=== PATIENT | female | born 1980 | race Caucasian/White ===

== ENCOUNTER 2022-07-29 19:53 | Emergency (ER) | payer OTHER, SELFPAY ==
[2022-07-29 20:06] VITALS: BP 111/78; PULSE 94; RESP 18; TEMP 36.9; O2SAT 99; BMI 34.8
[2022-07-29 20:26] LABS: Appearance Urine Clear (Clear); Bilirubin Urine Negative (Negative); Blood Urine Negative (Negative); Color Urine Yellow (Yellow); Glucose Urine Negative (Negative); Ketones Urine Negative (Negative); Leukocyte Esterase Urine 1+ (Negative); Nitrite Urine Negative (Negative); Protein Urine Negative (Negative); Urobilinogen Urine >=8.0 (0.2-1.0)
[2022-07-29 20:36] LABS: Bacteria Urine Few; RBC Urine 0-2 (0-2); Squamous Epithelial Cell Urine Few (None-Few)
[2022-07-29 20:42] LABS: Lactate* 0.5 mmol/L (0.5-1.9)
[2022-07-29] MEDS: KETOROLAC 30 MG/ML inj IVP (20:43)
[2022-07-29 20:44] LABS: Basophils Absolute Auto 0.04 K/uL (0.00-0.30); Basophils Percent Auto 0.6 % (0.0-3.0); Eosinophils Absolute Auto 0.05 K/uL (0.00-0.50); Eosinophils Percent Auto 0.7 % (0.0-7.0); Hematocrit 38.4 % (33.0-51.0); Hemoglobin* 12.7 gm/dL (12.0-16.0); Immature Granulocytes Abs Auto 0.01 K/uL (0.00-0.30); Lymphocytes Absolute Auto 1.89 K/uL (0.90-2.90); Mean Corpuscular HGB Conc 33 gm/dL (32-36); Mean Corpuscular Hemoglobin 29 pg (26-34); Mean Corpuscular Volume 89 fL (80-100); Monocytes Percent Auto 8.4 % (0.0-11.0); Neutrophils Absolute Auto 4.41 K/uL (1.7-7.0); Neutrophils Percent Auto 63.2 % (42.0-72.0); Platelet Count* 337 K/uL (140-440); RDW Coefficient of Variation % 12.3 % (11.5-15.5); Red Blood Count 4.34 m/uL (4.00-5.20); White Blood Count* 6.99 K/uL (4.50-11.00)
[2022-07-29 20:47] LABS: Slide Review Reflex No
[2022-07-29] MEDS: 0.9 % SODIUM CHLORIDE 1000 ml 1,000 ML IV ×2 (20:47→20:51)
--- OUTSIDE RECORDS SUMMARY | 2022-07-29 20:57 | XMS_ITS | Encounter Summary ---
:1980 Author Organization [facility] Address [address] [place] [address] Care Team Providers Name Role Phone Unavailable Primary Care Provider Unavailable Encounter Details Date Type Department Care Team Description 09/16/2021 Clinical Communication Department of Romeo Otoole, Obstetrics and M.D. Gynecology in [address] [place] [id number] [place], [place] [phone] (Work) [phone] Social History Tobacco Use Types Packs/Day Years Used Date Smoking Tobacco: Never Assessed Sex Assigned at Date Recorded Not on file documented as of this encounter Miscellaneous Notes Telephone Encounter - Genevieve Calvillo R.N. - 09/16/2021 4:01 PM CST PLAN The following information was provided: Dr Otoole's recommendations Information/Education: patient/caller able to teach back The following references were used: provider Dr Otoole LAWYER Telephone Encounter - Genevieve Calvillo R.N. - 09/16/2021 3:47 PM CST ASSESSMENT Has ablation with hysteroscopy/D&C scheduled on 09/24/21. Her son was sent home from school todaywith COVID symptoms-he has been tested and awaiting results. Lois has been vaccinated. She and her employer are requesting your recommendation regarding quarantine at this time. If you recommend we will provide work note PLAN Discussed general precautions and to call for testing if she becomes symptomatic.Note forwarded to provider for further recommendations Disposition/Recommendation: notified provider and awaiting recommendations. Information/Education: patient/caller able to teach back. Caller agreeable to plan of care: yes. The following references were used: nursing clinical judgement. LAWYER Telephone Encounter - Ester Smalls - 09/16/2021 3:04 PM CST Patient is scheduled to have surgery next week with Dr. Otoole. Her son tested positive for Covid. She is wondering if there are precautions that she needs to take. Please call her back at [phone]. LAWYER documented in this encounter Plan of Treatment Not on filedocumented as of this encounter Visit Diagnoses Not on filedocumented in this encounter
--- OUTSIDE RECORDS SUMMARY | 2022-07-29 20:57 | XMS_ITS | Encounter Summary ---
:1980 Author Organization [facility] Address [address] [place] [address] Care Team Providers Name Role Phone Unavailable Primary Care Provider Unavailable Encounter Details Date Type Department Care Team Description 08/31/2021 Clinical Communication Department of Romeo Otoole, Obstetrics and M.D. Gynecology in [address] [place] [id number] [place], [place] [phone] (Work) [phone] Social History Tobacco Use Types Packs/Day Years Used Date Smoking Tobacco: Never Assessed Sex Assigned at Date Recorded Not on file documented as of this encounter Miscellaneous Notes Telephone Encounter - Carrie Lee - 08/31/2021 3:00 PM CST PA for hysteroscopy, dilation and curettage, endometrial ablation, IUD placement with Xiang at [facility] on 09/24/21 has been sent. Patient having COVID test done at [facility]. MOBILE Telephone Encounter - Joanna Paulino L.P.N. - 08/31/2021 2:01 PM RN MOBILE [facility] Surgery Clinic Checklist Patient Contact Number: [phone] Surgeon: Xiang Surgical Service: (_) Orthopedics (_) General surgery (_) Ophthalmology (_) Podiatry (_) ENT (_) Urology (X) OB / Gynecology (_) Other Date of Surgery: 09/24/21 Place of Surgery: [facility] Procedure (as written on Consent): hysteroscopy, dilation and curettage, endometrial ablation, IUD placement Right, Left, Bilateral, N/A: Diagnosis (reason for surgery): abnormal uterine bleeding ICD-10: n93.9 CPT:98824; [id number] Case Type: (_) Outpatient (_) AM Admit (_) Inpatient (_) One day surgery Patient MOBILE documented in this encounter Plan of Treatment Not on filedocumented as of this encounter Visit Diagnoses Not on filedocumented in this encounter
--- OUTSIDE RECORDS SUMMARY | 2022-07-29 20:57 | XMS_ITS | Encounter Summary ---
:1980 Author Organization [facility] Address [address] [place] [address] Care Team Providers Name Role Phone Unavailable Primary Care Provider Unavailable Reason for Visit Reason Comments Medical Information Encounter Details Date Type Department Care Team Description 09/28/2021 Clinical Communication [facility] Arelis Damon Gynecology in [address] [place] [phone] [place] [address] [place], [place] (Work) [phone] Social History Tobacco Use Types Packs/Day Years Used Date Smoking Tobacco: Never Assessed Sex Assigned at Date Recorded Not on file documented as of this encounter Miscellaneous Notes Telephone Encounter - Shanna Kelley L.P.N. - 09/28/2021 4:24 PM ACTIVITIES SPECIALIST Patient informed and will special agent group insurance at [employer] desk in [place]. VITIES SPECIALIST Telephone Encounter - Shanna Kelley L.P.N. - 09/28/2021 2:03 PM ACTIVITIES SPECIALIST Patient still is bleeding from ablation endometrium novasure with hysteroscopy and D&C surgery 09/24/2021. 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 She is hoping by Tuesday that the cramping and bleeding will be done. She is asking for a note stating to be off 09/28 and 09/29 and return to work on . She will special agent group insurance note whe n ready in [place]. Note pended, sign if approved. VITIES SPECIALIST Telephone Encounter - Suresh Escobar - 09/28/2021 1:53 PM CST Reason for Communication: Patient called and would like to talk to a rheostat assembler nurse about getting a work note with restrictions, after she had her surgery with jamilah, please advise. Current Can Nursing/Provider leave a detailed message: yes Did the patient refuse triage through Nurse line? (for symptom based concerns): Action Needed: Name of Medication (if relevant): VITIES SPECIALIST documented in this encounter Plan of Treatment Not on filedocumented as of this encounter Visit Diagnoses Not on filedocumented in this encounter
--- OUTSIDE RECORDS SUMMARY | 2022-07-29 20:57 | XMS_ITS | Encounter Summary ---
:1980 Author Organization [facility] Address [address] [place] [address] Care Team Providers Name Role Phone Unavailable Primary Care Provider Unavailable Encounter Details Date Type Department Care Team Description 10/01/2021 Clinical Communication Department of Romeo Otoole, Obstetrics and MD[place]. Gynecology in [address] [place] [address] [place], [place] [phone] (Work) [phone] Social History Tobacco Use Types Packs/Day Years Used Date Smoking Tobacco: Never Assessed Sex Assigned at Date Recorded Not on file documented as of this encounter Miscellaneous Notes Telephone Encounter - Renu Martins, L.P.N. - 10/01/2021 4:01 PM PHOTOGRAPHIC TECHNICIAN Spoke with patient and she said that she is change a always maxi pad 3 times today. She said it is bright red blood. It is not soaking the pad. She wants to know if this is normal or if she is doing tomuch. 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 Told her I would let you know. She is not having any pain. She also said she has an appointment tomorrow with you. OGRAPHIC TECHNICIAN Telephone Encounter - Ester Smalls - 10/01/2021 3:54 PM CST Patient states she is back working and now she is bleeding again. She is wondering if she is doing too much. Please call her back to discuss. OGRAPHIC TECHNICIAN documented in this encounter Plan of Treatment Not on filedocumented as of this encounter Visit Diagnoses Not on filedocumented in this encounter
--- OUTSIDE RECORDS SUMMARY | 2022-07-29 20:57 | XMS_ITS | Clinical Summary ---
:1980 Author Organization [facility] Address [address] [place] [address] Care Team Providers Name Role Phone Unavailable Primary Care Provider Unavailable Source Comments Patient records contain information from all sites at [facility]. For routine questions regarding patient records, call [phone] during business hours, M-F 8:00 AM - 5:00 PM Central Time. Record requests for emergency care only can be directed to [phone] at any time.[facility] Allergies No known active allergies Medications Medication Sig Dispensed Refills Start Date End Date Status estradioL (ESTRACE) 1 TAKE ONE TABLET BY 0 1 Active mg tablet MOUTH EVERY DAY FOR 7 DAYS sennosides-docusate Take 1 tablet by 0 12/20/2019 Active sodium (SENOKOT-S) mouth daily. 8.6-50 mg per tablet omeprazole (PriLOSEC) omeprazole 40 mg capsule,delayed release 0 04/24/[address] capsule TAKE ONE CAPSULE BY MOUTH ONCE DAILY BEFORE A MEAL levothyroxine Take 75 mcg by 0 07/25/2021 Active (SYNTHROID, mouth. LEVOTHROID) 75 mcg tablet levonorgestreL 1 Device by 0 06/16/2020 Ac tive (MIRENA) 20 mcg/24 intrauterine route. hours (7 yrs) 52 mg IUD levonorgestrel-ethiny Take 1 tablet by 91 tablet 3 08/31/2021 Active l estradiol mouth daily. (SEASONALE) 0.15-mg-30 mcg per tabletIndications: Abnormal Uterine And Vaginal Bleeding Unspecified Immunizations Name Administration Dates Next Due Influenza, Unspecified 09/23/2009, 08/17/2007, 09/06/2006, 1 11/18/2004, 08/17/2004 Social History Tobacco Use Types Packs/Day Years Used Date Smoking Tobacco: Never Smokeless Tobacco: Never Sex Assigned at Date Recorded Not on file Last Filed Vital Signs Vital Sign Reading Time Taken Comments Blood Pressure 114/78 10/02/2021 2:52 PM METAL BONDER Pulse 80 10/02/2021 2:52 PM METAL BONDER Temperature - - Respiratory Rate - - Oxygen Saturation - - Inhaled Oxygen Concentration - - Weight 103 kg (228 lb 1.1 oz) 10/02/2021 2:52 PM METAL BONDER Height - - Body Mass Index - - Plan of Treatment Health Maintenance Due Date Last Done Comments HIV Screening 1980 Hepatitis C Screening 1980 Mammogram 1980 Depression Screening 10/17/2021 (Annual PHQ-2) COVID-19 Vaccine (4 - 10/29/2021 09/03/2021, 11/27/2020, Booster for Pfizer series) 11/06/2020 Influenza Vaccine (#1) 2022 07/16/2020, 08/27/2017, 07/29/2016, Additional history exists DTaP,Tdap,and Td Vaccines 08/25/2022 08/25/2012 (2 - Td or Tdap) Thyroid Stimulating Hormone 11/12/2022 11/12/2021, 07/23/20 21, (TSH) test for thyroid 06/01/2021, Additional function history exists Cervical Cancer Screening 08/31/2026 08/31/2021, 08/31/2021 Lipid (Cholesterol) 01/12/2027 01/12/2022, 03/23/2019 Screening Hepatitis B Vaccines Completed 04/17/1997, 10/24/1996, 09/26/1996 Pneumococcal vaccine (0-64 Aged Out No lo nger eligible years) based on patient 's age to complete this topic Insurance Payer Benefit Plan / Subscriber ID Effective Phone Address T ype Group Dates [employer] [place] [id number] 2020-Pre [phone] PPO SHIELD 1 sent [id number] [address] [id number] [facility] [id number] 2020-Pre [phone] [facility] sent [phone] [phone]
--- OUTSIDE RECORDS SUMMARY | 2022-07-29 20:57 | XMS_ITS | Encounter Summary ---
:1980 Author Organization [facility] Address [address] [place] [address] Care Team Providers Name Role Phone Unavailable Primary Care Provider Unavailable Reason for Referral Outpatient (Routine) - Authorized Specialty Diagnoses / Procedures Referred By Contact Refer red To Contact Diagnoses Wellness Screening Romeo Otoole M.D. [facility] Procedures BI Breast Screening Bilateral with Tomosynthesis [address] [place] [address] Referral ID Status Reason Start Date Expiration Date Visits V isits Requested Authorized [id number] Authorized 08/31/2021 08/31/2022 1 1 ING SANDER OPERATOR Reason for Visit Reason Comments DUB Appointment Request (Routine) - Closed Specialty Diagnoses / Procedures Referred By Contact Refer red To Contact Obstetrics and Gynecology Referral ID Status Reason Start Date Expiration Date Visits Requ ested Visits Authorized [id number] Closed 08/31/2021 08/31/2022 1 1 Encounter Details Date Type Department Care Team Description 08/31/2021 Comprehensive Visit Department of Romeo Otoole Uterine And Vaginal Bleeding Unspecified (Primary Dx); Obstetrics and Arelis Damon Wellness Screening Gynecology in [address] [facility] [id number] [address] [facility] [phone] [place], [place] (Work) [phone] Social History Tobacco Use Types Packs/Day Years Used Date Smoking Tobacco: Never Assessed Sex Assigned at Date Recorded Not on file documented as of this encounter Last Filed Vital Signs Vital Sign Reading Time Taken Comments Blood Pressure 108/64 08/31/2021 1:00 PM TURNING SANDER OPERATOR Pulse 100 08/31/2021 1:00 PM TURNING SANDER OPERATOR Temperature - - Respiratory Rate - - Oxygen Saturation - - Inhaled Oxygen Concentration - - Weight 101 kg (221 lb 10.8 oz) 08/31/2021 1:00 PM TURNING SANDER OPERATOR Height - - Body Mass Index - - documented in this encounter Progress Notes Romeo Otoole M.D. - 08/31/2021 1:15 PM CST Consult note Consult requested by Brooke Valenzuela SUBJECTIVE CHIEF COMPLAINT/REASON FOR VISIT Abnormal uterine bleeding HISTORY OF PRESENT ILLNESS Lois Rose is a 41 y.o. P3 who presents in consultation for abnormal uterine bleeding. Mirena placed a year ago with secondary amenorrhea, though now with new onset daily spotting x2 months. Prior IUDs all with good responses. Also reports new onset lower abdominal pain, left > right,constant, though severe with intercourse, one care home partner x1 year, no prior dyspareunia. Current dyspareunia deep and to the left. BMs at baseline, abnormal with mostly constipation following prior gastric sleeve. She does report that she often goes days between bowel movements, in effectively managed with regular use of stool softeners as well as enemas. She has never been evaluated by GI for this. Voiding is normal. No other vaginal symptoms. OBSTETRICAL HISTORY: P3003, s/p x3 GYNECOLOGIC HISTORY: No LMP recorded. (Menstrual status: Having periods with Intrauterine Device/Implant). As above Last pap NIL (08/03) due for repeat Pap LAST MAMMOGRAM: Never, due now STI HISTORY: Chlamydia in 2018 Using IUD for control. 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 FAMILY HISTORY No family history on file. SOCIAL HISTORY Social History Socioeconomic History ??? Marital status: Spouse name: Not on file ??? Number of children: Not on file ??? Years of education: Not on file ??? Highest education level: Not on file Occupational History ??? Not on file Tobacco Use ??? Smoking status: Not on file ??? Smokeless tobacco: Not on file Substance and Sexual Activity ??? Alcohol use: Not on file ??? Drug use: Not on file ??? Sexual activity: Not on file Other Topics Concern ??? Not on file Social History Narrative ??? Not on file Social Determinants of Health Financial Resource Strain: Not on file Food Insecurity: Not on file Transportation Needs: Not on file Physical Activity: Not on file Stress: Not on file Social Connections: Not on file Intimate Partner Violence: Not on file Housing Stability: Not on file ALLERGIES/CONTRAINDICATIONS Patient has no known allergies. CURRENT MEDICATIONS Current Outpatient Medications Medication Sig Dispense Refill ??? levonorgestreL (MIRENA) 20 mcg/24 hours (7 yrs) 52 mg IUD 1 Device by intrauterine route. ??? levothyroxine (SYNTHROID, LEVOTHROID) 75 mcg tablet Take 75 mcg by mouth. ??? omeprazole (PriLOSEC) [address] capsule omeprazole 40 mg capsule,delayed release TAKE ONE CAPSULE BY MOUTH ONCE DAILY BEFORE A MEAL ??? sennosides-docusate sodium (SENOKOT-S) 8.6-50 mg per tablet Take 1 tablet by mouth daily. ??? estradioL (ESTRACE) 1 mg tablet TAKE ONE TABLET BY MOUTH EVERY DAY FOR 7 DAYS No current facility-administered medications for this visit. REVIEW OF SYSTEMS A 10 point Review of Systems was negative, other than as noted in the History of Present Illness. OBJECTIVE PHYSICAL EXAMINATION VITAL SIGNS Vitals: 08/31/21 1300 BP: 108/64 Pulse: 100 Weight: 101 kg There is no height or weight on file to calculate BMI. General: Alert, oriented, appropriately interactive, in no acute distress. Cardiovascular: Regular rate and rhythm. Respiratory: Clear to auscultation bilaterally. Good effort, without distress. Abdomen: Soft, obese, nontender, nondistended. No masses appreciated. Perineum: No lesions. Normal appearing external genitalia, Bartholin glands, urethra, and [place]'s glands. Vagina: Blood in vault. No masses or lesions. No discharge, normally rugated. Cervix: No masses or lesions. Scant active bleeding from the os. No discharge. Anus: Appears normal. Bimanual Exam: Nontender pelvic floor muscles. Urethra: Nontender. Bladder: Nontender Uterus: Midline, anteverted, small, mobile. No masses, nontender. Adnexa: Focal significant tenderness in the left deep pelvis at approximately the ovarian fossa without mass appreciated. No masses appreciated. No cervical motion tenderness. Musculoskeletal: Normal gait. Symmetric movements of upper extremities and lower extremities. Lower Extremities: Nontender, no edema. LABS: TSH 3.15, free T4 0.85, thyroperoxidase antibody 459 Pelvic ultrasound (08/28/21) FINDINGS: Uterus 8.9 x 5.2 x 3.3 cm. Endometrial stripe 4 mm. IUD is seen within the endometrium. Right ovary measures 3.4 x 3.0 x 1.9 cm and shows arterial flow. Left ovary measures 2.4 x 2.2 x 1.8 cm and showsarterial flow. Directly adjacent to the left ovary is an anechoic simple appearing cystic area measuring 1.5 x 1.0 x 1.2 centimeters possibly representing simple exophytic cyst. Echogenic and shadowingarea within the cervix measuring it 0.4 x 0.4 x 0.3 centimeters may correspond to the calcificationsseen on comparison CT. Mildly difficult exam due to bowel gas. IMPRESSION: Endometrium measures 4 millimeters. IUD is seen within the endometrium. Simple appearing exophytic cyst versus less likely paraovarian cyst directly adjacent to the left ovary, measuring up to 1.5 centimeters. 4 millimeter echogenic and shadowing area within the cervix, may correspond to the hyperdense probably calcification seen on comparison CT. The following portions of the patient's history were reviewed and updated as appropriate: allergies,current medications, family history, medical history, social history, surgical history and problem list. ASSESSMENT / PLAN Lois Rose is a 41 y.o. P3 who presents for assessment of abnormal uterine bleeding as well as focal deep left lower quadrant pain. Based on her history, exam findings, and ultrasound findings as detailed above, I suspected that her deep left lower quadrant pain is GI in nature rather than nurse gynecology,patient has chronic severe constipation, is at high risk for diverticulosis or diverticulitis. I am recommending that she discuss with her primary care provider referral to a GI specialist in [place]. Her abnormal uterine bleeding as her to explain. She has been previously well controlled with MirenaIUD for many years with a sudden onset of abnormal prolonged bleeding. Bleeding appears to be comingfrom the uterus, no vaginal nor cervical lacerations were noted. Endometrial stripe is thin at 4 mm on ultrasound. Patient is requesting an endometrial ablation. Endometrial biopsy is not strictly indicated given 4 mm endometrial stripe. However, given her desire for an ablation, I am recommending a hysteroscopy, dilation and curettage, endometrial ablation, and removal and replacement of a Mirena IUD. This will allow further assessment of the endometrium and sampling prior to performing the ablation as well as very likely treat her abnormal bleeding. We did discuss the risks of recurrent bleeding following an endometrial ablation with increased risk when the ablation is a performed a younger age.She would like to proceed with the procedure, requested this be performed in the operating room rather than clinic. Surgical consent has been signed indicates has been requested. Abnormal Uterine And Vaginal Bleeding Unspecified - Patient is requesting an endometrial ablation. See discussion above. - SARS Coronavirus-2 RNA, V Asymptomatic; Future - levonorgestrel-ethinyl estradiol (SEASONALE) 0.15-mg-30 mcg per tablet; Take 1 tablet by mouth daily. Dispense: 91 tablet; Refill: 3 Wellness Screening - ThinPrep w/HPV Co-Test Screen - BI Breast Screening Bilateral with Tomosynthesis; Future Romeo Otoole M.D. 08/31/2021 1:24 PM TURNING SANDER OPERATOR ING SANDER OPERATOR documented in this encounter Plan of Treatment Scheduled Orders Name Type Priority Associated Order Schedule Diagnoses BI Breast Screening Imaging RAD - Routine (most Wellness Scree bijan Expected: Bilateral with inpatients and all 021 Tomosynthesis outpatients) (Approximate), Expires: 08/31/2024 documented as of this encounter Procedures Procedure Name Priority Date/Time Associated Diagnosis Comme nts THINPREP W/HPV Routine 08/31/2021 1:55 PM Wellness Screening R esults for this CO-TEST SCREEN TURNING SANDER OPERATOR procedure are in the results section. HPV WITH Routine 08/31/2021 1:55 PM Results f or this GENOTYPING, PCR, TURNING SANDER OPERATOR procedure a re in THINPREP the results section. documented in this encounter Results HPV with Genotyping, PCR, ThinPrep (08/31/2021 1:55 PM TURNING SANDER OPERATOR) P athologist Signature HPV with Negative Negative 09/01/2021 [facility] Genotyping, 8:33 PM TURNING SANDER OPERATOR ThinPrep, PCR Comment: Negative for high risk HPV by nucleic ac id amplification. ??The following high risk HPV types were not detected: 16, 18, 31, 33, 35, 39, 45, 51, 52, 56, 58, 59, 66, and 68 Specimen Anatomical Collection Method Collection Time Receive d Time (Source) Location / / Volume Laterality Varies 08/31/2021 1:55 PM 7:35 TURNING SANDER OPERATOR AM TURNING SANDER OPERATOR Romeo Otoole M.D. LAB MICROBIOLOGY - GENERAL O RDERABLES Performing Organization Address City/State/ZIP Code Phon e Number [facility]- [address] [place] [id number] [place] [address] [address] ThinPrep w/HPV Co-Test Screen (08/31/2021 1:55 PM TURNING SANDER OPERATOR) Component Value Ref Test Analysis Performed Pathologis t Range Method Time At Signature 09/03/2021 [facility] 11:07 AM TURNING SANDER OPERATOR Report DENEEN Samano(ASCP) 09/03/2021 [facility] electronically 11:07 AM signed by TURNING SANDER OPERATOR I verify that I have examined all relevant slides/materials for the specimen(s) and rendered or confirmed the diagnosis. Gross Description Received specimen 09/03/2021 [facility] Y in a ThinPrep 11:07 AM vial. TURNING SANDER OPERATOR Pap Test Source Cervical/Endocervi 09/03/2021 [facility] yonatan 11:07 AM TURNING SANDER OPERATOR Clinical History screen 09/03/2021 [facility] 11:07 AM TURNING SANDER OPERATOR Menstrual lmp 09/03/2021 [facility] Status(LMP, PM, 11:07 AM ) TURNING SANDER OPERATOR Hormone IUD 09/03/2021 [facility] Therapy/Contracep 11:07 AM tives TURNING SANDER OPERATOR Interpretation Cervical/Endocervical ??(ThinPrep): 09/03/2021 [facility] 11:07 AM Satisfactory for Evaluation TURNING SANDER OPERATOR Partially obscuring inflammation Negative for Intraepithelial Lesion or Malignancy Shift in josef suggestive of bacterial vaginosis High Risk HPV: ??Negative Negative for High Risk HPV by nucleic acid amplification. The following High Risk HPV types were not detected: 16, 18, 31, 33, 35, 39, 45, 51, 52, 56, 58, 59, 66, and 68. Specimen Anatomical Collection Method Collection Time Receive d Time (Source) Location / / Volume Laterality Varies 08/31/2021 1:55 PM 11/16/202 1 7:35 (Cervix/Endocerv TURNING SANDER OPERATOR AM TURNING SANDER OPERATOR ix) Narrative This result has an attachment that is no t available. Romeo Otoole M.D. LAB PAP PATHDX ORDERABLES Performing Organization Address City/State/ZIP Code Phon e Number [facility]- [facility] CYTOLOGY [facility] [address] Cytology [facility] documented in this encounter Visit Diagnoses Diagnosis Abnormal Uterine And Vaginal Bleeding Un specified - Primary Wellness Screening documented in this encounter
--- OUTSIDE RECORDS SUMMARY | 2022-07-29 20:57 | XMS_ITS ---
:1980 Author Care Team Providers Name Role Phone DR. DOTTY NOLAN Referring Provider [phone] Allergies Code Code System Name Reaction Severity Status Onset NKDA ? Medications Name Status Start Date Stop Date ? ? Advair Diskus 250 mcg-50 mcg/dose powder for inhalation Complete d ? 07/08/2021 INHALE ONE PUFF BY MOUTH TWICE A DAY albuterol sulfate HFA 90 mcg/actuation aerosol inhaler Completed ? 07/08/2021 INHALE ONE TO TWO PUFFS BY MOUTH EVERY 4 HOURS NEEDED amoxicillin 875 mg-potassium clavulanate 125 mg tablet Completed ? 07/08/2021 TAKE ONE TABLET BY MOUTH TWICE A DAY WITH MEALS FOR 10 DAYS bupropion HCl XL 150 mg 24 hr tablet, extended release Completed ? 07/08/2021 cephalexin 500 mg capsule Completed ? 2020 TAKE ONE CAPSULE BY MOUTH THREE TIMES A DAY FOR 7 DAYS cyclobenzaprine 10 mg tablet Completed ? TAKE ONE TABLET BY MOUTH TWICE A DAY NEEDED FOR MUSCLE SPASM levothyroxine 50 mcg tablet Active ? Not available TAKE ONE TABLET BY MOUTH EVERY DAY BEFORE BREAKFAST omeprazole 40 mg capsule,delayed release Active ? Not available TAKE ONE CAPSULE BY MOUTH ONCE DAILY BEFORE A MEAL oxycodone-acetaminophen 5 mg-325 mg tablet Completed ? 07/08/2021 TAKE ONE TO TWO TABLETS BY MOUTH EVERY 6 HOURS NEEDED FOR PAIN MAX ACETAMINOPHEN DOSE 4000MG / 24HRS phentermine 37.5 mg tablet Completed ? 07/08 TAKE ONE-HALF TO ONE TABLET BY MOUTH ONCE DAILY BEFORE A MEAL prednisone 20 mg tablet Completed ? 07/08/20 21 TAKE TWO TABLETS BY MOUTH EVERY DAY FOR 3 DAYS, THEN TAKE ONE TABLET BY MOUTH EVERY DAY FOR 3 DAYS, THEN TAKE ONE-HALF TABLET BY MOUTH EVERY zolpidem 5 mg tablet Completed ? 07/08/2021 Problems Name Status Onset Date Source ? Lymphadenopathy Active 07/14/2021 ? Procedures None recorded. Results Lab Results None recorded. Past Encounters 07/08/2021 Lymphadenopathy Brooke Luke Craven, DDS: [address] [facility], [address], [place] [address], Ph. Social History None recorded. Vaccine List Vaccine Type COVID-19 (SARS-COV-2) vaccine, unspecifi ed 12/15/2020 Plan of Care Reminders Provider Appointments None recorded. ? ? Lab None recorded. ? ? Referral None recorded. ? ? Procedures None recorded. ? ? Surgeries None recorded. ? ? Imaging None recorded. ? ? Vitals Height Weight BMI Blood Pressure 5 ft 4 in 235 lbs 40.3 kg/m2 117/83 mm[Hg]
--- OUTSIDE RECORDS SUMMARY | 2022-07-29 20:57 | XMS_ITS | Encounter Summary ---
:1980 Author Organization [facility] Address [address] [place] [address] Care Team Providers Name Role Phone Unavailable Primary Care Provider Unavailable Reason for Visit Reason Comments Post-op Visit Appointment Request (Routine) - Closed Specialty Diagnoses / Procedures Referred By Contact Refer red To Contact Obstetrics and Gynecology Referral ID Status Reason Start Date Expiration Date Visits Requ ested Visits Authorized [id number] Closed 09/29/2021 09/29/2022 1 1 Encounter Details Date Type Department Care Team Description 10/02/2021 Office Visit Department of Romeo Otoole, Follow Up Examination Obstetrics and Arelis Postoperative Visit Gynecology in [address] (Primary Dx) [place], [place] [address] [facility] [address] [address] [address] [place], [place] [phone] [address] (Work) [phone] Social History Tobacco Use Types Packs/Day Years Used Date Smoking Tobacco: Never Smokeless Tobacco: Never Sex Assigned at Date Recorded Not on file documented as of this encounter Last Filed Vital Signs Vital Sign Reading Time Taken Comments Blood Pressure 114/78 10/02/2021 2:52 PM SPECIAL LOAN OFFICER Pulse 80 10/02/2021 2:52 PM SPECIAL LOAN OFFICER Temperature - - Respiratory Rate - - Oxygen Saturation - - Inhaled Oxygen Concentration - - Weight 103 kg (228 lb 1.1 oz) 10/02/2021 2:52 PM SPECIAL LOAN OFFICER Height - - Body Mass Index - - documented in this encounter Progress Notes Romeo Otoole M.D. - 10/02/2021 3:00 PM CST S: Lois Rose is a 41 y.o. P3 here for post-operative visit following a Hysteroscopy, D&C, Novasure endometrial ablation, Mirena removal and replacement on September 24. Hysteroscopic findings were unremarkable. Pathology showed benign tissue. Called yesterday, stated changing a maxi pad 3 times today. She said it is bright red blood. It is not soaking the pad. She wants to know if this is normal or if she is doing to much. 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 Today she reports discharge in bleeding is most prominent when she is climbing stairs, though the symptoms are manageable. She otherwise states that she is doing well without any other concerns. She just wants to make sure that this is normal. Current Outpatient Medications Medication Sig Dispense Refill ??? estradioL (ESTRACE) 1 mg tablet TAKE ONE TABLET BY MOUTH EVERY DAY FOR 7 DAYS ??? levonorgestreL (MIRENA) 20 mcg/24 hours (7 yrs) 52 mg IUD 1 Device by intrauterine route. ??? levonorgestrel-ethinyl estradiol (SEASONALE) 0.15-mg-30 mcg per tablet Take 1 tablet by mouth daily. 91 tablet 3 ??? levothyroxine (SYNTHROID, LEVOTHROID) 75 mcg tablet Take 75 mcg by mouth. ??? omeprazole (PriLOSEC) [address] capsule omeprazole 40 mg capsule,delayed release TAKE ONE CAPSULE BY MOUTH ONCE DAILY BEFORE A MEAL ??? sennosides-docusate sodium (SENOKOT-S) 8.6-50 mg per tablet Take 1 tablet by mouth daily. No current facility-administered medications for this visit. No Known Allergies No past medical history on file. No past surgical history on file. O: There were no vitals filed for this visit. Gen: Alert, oriented, appropriately interactive, NAD Remainder of exam deferred Pathology: A) ENDOMETRIUM, CURETTAGE: 1. Inactive endometrium with pseudodecidual changes 2. Portions of myometrium 3. Portions of endocervix 4. Negative for hyperplasia, atypia and malignancy A/P: Post op as detailed above Doing well. We reviewed that some bleeding and discharge is normal as the ablation heels, plan to discontinue to watch for now, she will return if symptoms do not resolve spontaneously. Electronically signed by: Romeo Otoole M.D. 10/01/21 6:34 PM SPECIAL LOAN OFFICER IAL LOAN OFFICER documented in this encounter Plan of Treatment Not on filedocumented as of this encounter Visit Diagnoses Diagnosis Follow Up Examination Postoperative Visi t - Primary documented in this encounter
[2022-07-29 21:01] LABS: Chloride* 107 mmol/L (96-114); Potassium* 3.9 mmol/L (3.6-5.1); Sodium* 137 mmol/L (135-149)
[2022-07-29 21:02] LABS: Albumin* 4.3 g/dL (3.3-5.0)
[2022-07-29 21:03] LABS: Creatinine* 0.7 mg/dL (0.5-1.5); Est. Creatinine Clearance* 91.33; Estimated Glomerular Filt Rate 111 ml/min
[2022-07-29 21:04] LABS: Blood Urea Nitrogen* 11 mg/dL (5-24); Carbon Dioxide* 22 mmol/L (20-32); Glucose* 101 mg/dL (60-115)
[2022-07-29 21:05] LABS: Alanine Aminotransferase* 13 U/L (4-35); Alkaline Phosphatase* 61 U/L (40-150); Aspartate Amino Transferase* 19 U/L (12-35); Bilirubin Direct* 0.1 mg/dL (0.0-0.5); Bilirubin Total* 0.4 mg/dL (0.1-1.5); Calcium* 8.8 mg/dL (8.4-10.6); Lipase* 60 U/L (23-300)
[2022-07-29 21:22] LABS: PCR FLU A Negative PCR FLU A (Negative); PCR FLU B Negative PCR FLU B (Negative); PCR RSV Negative PCR RSV (Negative)
[2022-07-29 21:27] LABS: C Reactive Protein* < 0.5 mg/dL (0.5-1.0); SARS PCR* Negative SARS-CoV-2 (Negative)
--- NOTE | 2022-07-29 21:39 | CRLHL7_ITS ---
For Patients: As a result of the Century Cures Act, medical imaging exams and procedure reports are released immediately into your electronic medical record. You may view this report before your referring provider. If you have questions, please contact your health care provider. INDICATION: Left-sided abdominal pain. History of gastric sleeve surgery. TECHNIQUE: CT abdomen and pelvis without contrast. COMPARISON: None available. FINDINGS: Lower chest: Subpleural ground-glass nodularity measuring up to 1.3 cm in the medial left lower lobe (series 3, image 17). Evaluation of solid organs is limited secondary to lack of IV contrast administration. Liver: Subcentimeter hypodense lesion in segment 6/7 of the liver, likely benign in the absence of a known malignancy. Gallbladder and bile ducts: Post cholecystectomy. Pancreas: Mild inflammatory changes abutting the pancreatic head. Spleen: Unremarkable. Splenule is noted. Adrenal glands: Unremarkable. Kidneys: No renal calculi or hydronephrosis bilaterally. Retroperitoneum: No lymphadenopathy. Bowel and mesentery: Bowel is not obstructed. Normal appendix. Postsurgical changes of sleeve gastrectomy. Prominent nondilated fluid-filled loop of small bowel in the left mid abdomen with mild adjacent perienteric inflammatory changes, likely reflective of enteritis. No pneumoperitoneum. Bladder: Unremarkable for degree of distension. Reproductive organs: Intrauterine contraceptive device is noted. Small volume pelvic free fluid, likely physiologic. Pelvic lymph nodes: No lymphadenopathy. Vessels: Unremarkable for unenhanced study. Abdominal wall: No acute abdominal wall abnormality. Bones: Multilevel degenerative changes of the spine. No suspicious/aggressive focal osseous lesion. IMPRESSION: 1. Mild inflammatory changes abutting the pancreatic head, may reflect component of mild pancreatitis versus duodenitis. Recommend correlation with serum lipase. 2. Prominent fluid-filled nondilated loop of small bowel in the left mid abdomen, favored to reflect enteritis. 3. Subpleural ground-glass nodularity measuring up to 1.3 cm in the medial left lower lobe of the lungs, likely infectious/inflammatory. Recommend follow-up CT chest in 6-12 months, per Fleischner guidelines. Please note that all CT scans at this facility use dose modulation, iterative reconstruction, and/or weight-based dosing when appropriate to reduce radiation dose to as low as reasonably achievable. Dictated by Sekou Roa MD @ 07/29/2022 10:56:46 PM (Electronically Signed)
--- NOTE | 2022-07-29 22:01 | ED.ABDPAIN ---
HPI - Abdominal Pain General Date Seen: 07/29/22 Chief Complaint: Abdominal Pain Stated Complaint: Abdominal pain and lower back pain Time Seen by Provider: 07/29/22 19:54 Source: patient Mode of arrival: ambulatory Limitations: no limitations History of Present Illness HPI narrative: 42-year-old female presents here with abdominal pain that is been building up over the past 2 weeks. She describes in the left side of her abdomen, crampy in nature, and that goes to her back. She does have a strong history of constipation her last bowel movement was on July 13. Has a history of a gastric sleeve, she denies any dysuria frequency fevers chills sweats, has not been vomiting but does feel little nauseous with this. She takes some stool aids which sounds to be more of a plant based daily. Been trying some Tylenol also has been avoiding ibuprofen because a history of a gastric sleeve. Drinking fluids fine. History of laparoscopic cholecystectomy, history of tubal ligation, history of tonsillectomy, MD elicited complaint: abdominal pain Pertinent past history: constipation Onset (ago): week(s) Pain Consistency: constant and intermittent Location: LUQ and LLQ Severity: severe Quality: stabbing Radiation: none and back Migration to: no migration Exacerbating factors: eating and movement Relieving factors: nothing Associated symptoms: constipation Treatments prior to arrival: other (Tylenol) Related Data Home Medications Medication Instructions Recorded Confirmed levothyroxine 75 mcg tablet 75 mcg PO QDAY 05/04/22 omeprazole 40 mg capsule,delayed 40 mg PO QDAY 05/04/22 release Previous Rx's Medication Instructions Recorded celecoxib 200 mg capsule (Celebrex) 200 mg PO BID PRN pain #60 caps 05/04/22 phentermine 37.5 mg capsule 37.5 mg PO QDAY #30 caps 05/04/22 trazodone 50 mg tablet 50 - 100 mg PO QDAY PRN sleep #60 05/04/22 tabs Allergies Allergy/AdvReac Type Severity Reaction Status Date / Time No Known Allergies Allergy Unverified 05/04/22 08:42 Review of Systems Status of ROS Reports: 10 or more systems reviewed and unremarkable except as noted in History and below [facility] Medical History Adjustment disorder with depressed mood GERD (gastroesophageal reflux disease) History of ETOH abuse History of lymphadenopathy History of prescription drug abuse Hypothyroidism Insomnia Major depressive disorder, recurrent episode Obesity Sialoadenitis Surgical History History of ear surgery History of esophagogastroduodenoscopy History of gastric bypass Hx laparoscopic cholecystectomy Hx of excision of mass Hx of tonsillectomy Status post hysteroscopic ablation of endometrium Family History Father Graves disease Social History Narrative: , 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, 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[employer], nonsmoker, social ETOH Smoking Status: Former smoker Do you use any of these nicotine containing products: None Second hand tobacco smoke exposure: No How often do you have a drink containing alcohol: never How often do you have six or more drinks on one occasion: Never AUDIT-C Alcohol total score: 0 Non-prescribed substance use: denies use Little interest or pleasure in doing things: not at all Feeling down, depressed, or hopeless: not at all Exam Narrative: Exam Narrative: Very nice lady is seen in room 3, her pupils are equal round reactive to light, she is nontoxic, oropharynx normal TMs normal, neck is supple no meningismus, chest is clear bilaterally with no wheezing crackles noted easy respirations, heart sounds no clicks murmurs or gallops her abdomen is soft with some mild tenderness noted on the left side of her abdomen, there is no rigidity noted with this. No organomegaly, extremities are all normal, no swelling negative Homans sign, Const: Vital Signs, click to edit/add: Vital Signs - 24 hr 07/29/22 20:06 07/29/22 23:41 07/29/22 23:00 Temperature 98.5 F 98.5 F 98.6 F Pulse Rate [Right Pulse Oximeter] 94 94 67 Respiratory Rate 18 18 16 Blood Pressure [Ri ght Upper Arm] 111/78 111/78 122/69 Pulse Oximetry 99 97 Oxygen Delivery Me thod Room Air Room Air Documenting provider has reviewed patient's vital signs: yes Course Course Hospital Course: I discussed with the patient that her CT scan showed that possibly this was either pancreatitis or duodenitis. I favor the duodenitis as her lipase was normal, and her pain pattern did not suggest pancreatitis. Omeprazole 20 mg a day is suggested, for her to start, this is [id number]. I gave her copy of the radiology report she will discuss this with her primary care physician when she meets with him early in the week. Avoidance of caffeinated beverages is also suggested. Some evidence of some mild enteritis on the left side, where her discomfort was. But no evidence of overt bowel obstruction. Reassuring laboratory test, and maybe a little bit a right-sided constipation, on CT. MiraLax would not be a bad idea also. Went over signs and symptoms of worsening, but overall I was reassured by what I see as she was also. Reevaluation(s) Reevaluation #1: She still continued to have abdominal pain lying on her left side, I went back and saw her we discussed the positives and negatives of both the x-ray versus CT scan after discussion with her, she would like to do the CT scan which I do not think is unreasonable give us more information. Time: 22:06 Vital Signs Vital signs: Initial Vital Signs Temperature 98.5 F 07/29/22 20:06 Temperature Source Temporal Artery Scan 07/29/22 20:06 Pulse Rate 94 07/29/22 20:06 Respiratory Rate 18 07/29/22 20:06 Blood Pressure 111/78 07/29/22 20:06 Blood Pressure Mean 89 07/29/22 20:06 Blood Pressure Position Sitting 07/29/22 20:06 Pulse Oximetry 99 07/29/22 20:06 Oxygen Delivery Method 07/29/22 20:06 Vital Signs Temperature 98.5 F 07/29/22 20:06 Pulse Rate 94 07/29/22 20:06 Respiratory Rate 18 07/29/22 20:06 Blood Pressure 111/78 07/29/22 20:06 Pulse Oximetry 99 07/29/22 20:06 Oxygen Delivery Method 07/29/22 20:06 Temperature 98.5 F 07/29/22 23:41 Pulse Rate 94 07/29/22 23:41 Respiratory Rate 18 07/29/22 23:41 Blood Pressure 111/78 07/29/22 23:41 Pulse Oximetry 97 07/29/22 23:00 Oxygen Delivery Method 07/29/22 23:00 MDM - Abdominal Pain MDM Narrative Medical decision making narrative: During the evaluation of this patient I considered multiple differential diagnosis including life-threatening differentials which are appendicitis, aortic aneurysm, mesenteric ischemia, bowel perforation, ectopic , volvulus and bowel obstruction, other differential diagnosis include but are not limited to inflammatory bowel disease, cholecystitis, pancreatitis, hepatitis, gastritis, GERD, diverticulitis, peptic ulcer disease, pyelonephritis/UTI, renal colic/stone, pelvic inflammatory disease, cervicitis, endometritis, intrauterine , dysfunctional uterine bleeding, ovarian cyst/torsion, spontaneous as well as other etiologies Medical Records Attestation: I reviewed the patient's medical records. Lab Data Attestation: I reviewed the patient's lab results. Labs: Lab Results 07/29/22 07/29/22 07/29/22 Range/Units 20:09 20:37 20:37 WBC 6.99 (4.50-11.00) K/uL RBC 4.34 (4.00-5.20) m/uL Hgb 12.7 (12.0-16.0) gm/dL Hct 38.4 (33.0-51.0) % MCV 89 (80-100) fL MCH 29 (26-34) pg MCHC 33 (32-36) gm/dL RDW Coeff of Shawn 12.3 (11.5-15.5) % Plt Count 337 (140-440) K/uL Neut % (Auto) 63.2 (42.0-72.0) % Lymph % (Auto) 27.0 (20-44) % Republic % (Auto) 8.4 (0.0-11.0) % Eos % (Auto) 0.7 (0.0-7.0) % Baso % (Auto) 0.6 (0.0-3.0) % Neut # (Auto) 4.41 (1.7-7.0) K/uL Lymph # (Auto) 1.89 (0.90-2.90) K/uL Republic # (Auto) 0.60 (0.00-0.90) K/UL Eos # (Auto) 0.05 (0.00-0.50) K/uL Baso # (Auto) 0.04 (0.00-0.30) K/uL Abs Immat Gran (auto) 0.01 (0.00-0.30) K/uL Sodium 137 (135-149) mmol/L Potassium 3.9 (3.6-5.1) mmol/L Chloride 107 (96-114) mmol/L Carbon Dioxide 22 (20-32) mmol/L BUN 11 (5-24) mg/dL Creatinine 0.7 (0.5-1.5) mg/dL Estimated Creat Clear 91.33 Estimated GFR 111 ml/min Glucose 101 (60-115) mg/dL Lactate (0.5-1.9) mmol/L Calcium 8.8 (8.4-10.6) mg/dL Total Bilirubin (0.1-1.5) mg/dL Direct Bilirubin (0.0-0.5) mg/dL AST (12-35) U/L ALT (4-35) U/L Alkaline Phosphatase (40-150) U/L C-Reactive Protein < 0.5 L (0.5-1.0) mg/dL Total Protein (6.0-8.3) g/dL Albumin (3.3-5.0) g/dL Lipase (23-300) U/L Urine Color Yellow (Yellow) Urine Appearance Clear (Clear) Urine pH 7.0 (5.0-8.5) Ur Specific Oxford 1.020 (1.000-1.030) Urine Protein Negative (Negative) Urine Glucose (UA) Negative (Negative) Urine Ketones Negative (Negative) Urine Blood Negative (Negative) Urine Nitrite Negative (Negative) Urine Bilirubin Negative (Negative) Urine Urobilinogen >=8.0 (0.2-1.0) Ur Leukocyte Esterase 1+ A (Negative) Urine RBC 0-2 (0-2) Urine WBC 2-5 (0-5) Ur Squamous Epith Cells Few (None-Few) Urine Bacteria Few A (None) SARS-CoV-2 (PCR) (Negative) Influenza Type A (PCR) (Negative) Influenza Type B (PCR) (Negative) RSV (PCR) (Negative) 07/29/22 07/29/22 07/29/22 Range/Units 20:37 20:37 20:37 WBC (4.50-11.00) K/uL RBC (4.00-5.20) m/uL Hgb (12.0-16.0) gm/dL Hct (33.0-51.0) % MCV (80-100) fL MCH (26-34) pg MCHC (32-36) gm/dL RDW Coeff of Shawn (11.5-15.5) % Plt Count (140-440) K/uL Neut % (Auto) (42.0-72.0) % Lymph % (Auto) (20-44) % Republic % (Auto) (0.0-11.0) % Eos % (Auto) (0.0-7.0) % Baso % (Auto) (0.0-3.0) % Neut # (Auto) (1.7-7.0) K/uL Lymph # (Auto) (0.90-2.90) K/uL Republic # (Auto) (0.00-0.90) K/UL Eos # (Auto) (0.00-0.50) K/uL Baso # (Auto) (0.00-0.30) K/uL Abs Immat Gran (auto) (0.00-0.30) K/uL Sodium (135-149) mmol/L Potassium (3.6-5.1) mmol/L Chloride (96-114) mmol/L Carbon Dioxide (20-32) mmol/L BUN (5-24) mg/dL Creatinine (0.5-1.5) mg/dL Estimated Creat Clear Estimated GFR ml/min Glucose (60-115) mg/dL Lactate 0.5 (0.5-1.9) mmol/L Calcium (8.4-10.6) mg/dL Total Bilirubin 0.4 (0.1-1.5) mg/dL Direct Bilirubin 0.1 (0.0-0.5) mg/dL AST 19 (12-35) U/L ALT 13 (4-35) U/L Alkaline Phosphatase 61 (40-150) U/L C-Reactive Protein (0.5-1.0) mg/dL Total Protein 7.0 (6.0-8.3) g/dL Albumin 4.3 (3.3-5.0) g/dL Lipase 60 (23-300) U/L Urine Color (Yellow) Urine Appearance (Clear) Urine pH (5.0-8.5) Ur Specific Oxford (1.000-1.030) Urine Protein (Negative) Urine Glucose (UA) (Negative) Urine Ketones (Negative) Urine Blood (Negative) Urine Nitrite (Negative) Urine Bilirubin (Negative) Urine Urobilinogen (0.2-1.0) Ur Leukocyte Esterase (Negative) Urine RBC (0-2) Urine WBC (0-5) Ur Squamous Epith Cells (None-Few) Urine Bacteria (None) SARS-CoV-2 (PCR) Negative SARS-CoV-2 (Negative) Influenza Type A (PCR) Negative PCR FLU A (Negative) Influenza Type B (PCR) Negative PCR FLU B (Negative) RSV (PCR) Negative PCR RSV (Negative) Imaging Data CT scan - abdomen: Radiologist's impression: Patient: LARRY SEGOVIA Facility: [facility] Site . Site : 1980 Study: CT Abdomen/Pelvis WITHOUT-07/29/2022 10:27:44 PM Ordering Physician: Carlyle Hensley Final Report: INDICATION: Left-sided abdominal pain. History of gastric sleeve surgery. TECHNIQUE: CT abdomen and pelvis without contrast. COMPARISON: None available. FINDINGS: Lower chest: Subpleural ground-glass nodularity measuring up to 1.3 cm in the medial left lower lobe (series 3, image 17). Evaluation of solid organs is limited secondary to lack of IV contrast administration. Liver: Subcentimeter hypodense lesion in segment 6/7 of the liver, likely benign in the absence of a known malignancy. Gallbladder and bile ducts: Post cholecystectomy. Pancreas: Mild inflammatory changes abutting the pancreatic head. Spleen: Unremarkable. Splenule is noted. Adrenal glands: Unremarkable. Kidneys: No renal calculi or hydronephrosis bilaterally. Retroperitoneum: No lymphadenopathy. Bowel and mesentery: Bowel is not obstructed. Normal appendix. Postsurgical changes of sleeve gastrectomy. Prominent nondilated fluid-filled loop of small bowel in the left mid abdomen with mild adjacent perienteric inflammatory changes, likely reflective of enteritis. No pneumoperitoneum. Bladder: Unremarkable for degree of distension. Reproductive organs: Intrauterine contraceptive device is noted. Small volume pelvic free fluid, likely physiologic. Pelvic lymph nodes: No lymphadenopathy. Vessels: Unremarkable for unenhanced study. Abdominal wall: No acute abdominal wall abnormality. Bones: Multilevel degenerative changes of the spine. No suspicious/aggressive focal osseous lesion. IMPRESSION: 1. Mild inflammatory changes abutting the pancreatic head, may reflect component of mild pancreatitis versus duodenitis. Recommend correlation with serum lipase. 2. Prominent fluid-filled nondilated loop of small bowel in the left mid abdomen, favored to reflect enteritis. 3. Subpleural ground-glass nodularity measuring up to 1.3 cm in the medial left lower lobe of the lungs, likely infectious/inflammatory. Recommend follow-up CT chest in 6-12 months, per Fleischner guidelines. Please note that all CT scans at this facility use dose modulation, iterative reconstruction, and/or weight-based dosing when appropriate to reduce radiation dose to as low as reasonably achievable. Dictated by Sekou Roa MD @ 07/29/2022 10:56:46 PM (Electronic Signature) Discharge Plan Discharge Clinical Impression: Abdominal pain Patient Disposition: Home, Self-Care Condition: Stable Instructions: Abdominal Pain (ED) Additional Instructions: Home rest follow-up with Dr. Marrufo early next week, consider starting omeprazole 20 mg a day for the abdominal pain, decrease use of caffeinated beverages if that is the issue, as this will also help this. Return here if increasing abdominal pain fevers chills or other issues, was not a lot of constipation on the CT, this also could be it least partial reason. Return as needed for increasing pain, Prescriptions: No Action levothyroxine 75 mcg tablet 75 mcg PO QDAY Label Comments: TAKE ONE TABLET BY MOUTH EVERY DAY BEFORE BREAKFAST omeprazole 40 mg capsule,delayed release(DR/EC) 40 mg PO QDAY Label Comments: TAKE ONE CAPSULE BY MOUTH EVERY DAY BEFORE A MEAL phentermine 37.5 mg capsule 37.5 mg PO QDAY Qty: 30 2RF Rx Instructions: must administer 30 minutes before or 1-2 hours after breakfast trazodone 50 mg tablet 50 - 100 mg PO QDAY PRN (Reason: sleep) Qty: 60 2RF celecoxib [Celebrex] 200 mg capsule 200 mg PO BID PRN (Reason: pain) Qty: 60 2RF Follow Up/Referrals: Dao Marrufo MD [Primary Care Provider] - Stand Alone Forms: [employer] Info Instructions
[2022-07-29 23:00] VITALS: BP 122/69; PULSE 67; RESP 16; TEMP 37; O2SAT 97
[2022-07-29 23:41] VITALS: BP 111/78; PULSE 94; RESP 18; TEMP 36.9
== END 2022-07-29 23:47 | disposition home or self-care (01) ==
PROVIDERS: Emergency Provider Family Medicine; PCP Family Medicine
DX: R10.32 Left lower quadrant pain (principal); R10.12 Left upper quadrant pain
CPT/HCPCS: 36415; 74176; 80048; 80076; 81001; 83605; 83690; 85025; 86140; 87086; 87502; 87634; 87635; 96361; 96374; 99284; J1885; J7030

== ENCOUNTER 2022-11-05 07:15 | Outpatient (CLI) | payer OTHER, SELFPAY ==
--- NOTE | 2022-11-05 07:15 | CRLHL7_ITS ---
For Patients: As a result of the Century Cures Act, medical imaging exams and procedure reports are released immediately into your electronic medical record. You may view this report before your referring provider. If you have questions, please contact your health care provider. INDICATION: Submandibular or sublingual swelling. Comparison 05/27/2021. TECHNIQUE: Multiplanar T1, T2 with fat saturation post gadolinium T1 sequences of soft tissues neck. FINDINGS: A marker has been placed on the right lateral upper neck over the area of suspected swelling (series 4, image 17). There is no immediately underlying mass, cystic lesion or inflammatory change in the subcutaneous fat. Superior to low the marker, the right parotid gland is normal symmetric to the left. At and inferior to the level of the marker, the right submandibular gland is normal and symmetric to the left. No surrounding inflammatory change. No intraglandular ductal dilatation. Allowing for motion artifact, there is no mass, edema or soft tissue swelling in the sublingual space or submental space. No enlarged cervical lymph nodes. In the axial plane, the thyroid gland is partially visualized but grossly normal. Nasopharynx and oropharynx are clear. No inflammation within the parapharyngeal fat pads are retropharyngeal space. Normal thickness of the epiglottis. No mass or asymmetry to base of tongue. Normal alignment of cervical spine. No prevertebral soft tissue swelling. Impression : 1. Underlying the marker on the right lateral upper neck, there is no underlying mass, cystic lesion or inflammation. 2. The right parotid and submandibular glands are normal and symmetric to the left. 3. No mass, edema or swelling in the sublingual or submental spaces 4. No adenopathy. 5. Normal deep soft tissues of the neck Dictated by Jamshid Butler MD @ 11/05/2022 10:28:15 PM (Electronically Signed)
== END 2022-11-05 07:16 | disposition home or self-care (01) ==
LOC: MRI 07:15
PROVIDERS: PCP Family Medicine; Visit Provider Otolaryngology
DX: R22.1 Localized swelling, mass and lump, neck (principal)
CPT/HCPCS: 70543; A9575

== ENCOUNTER 2023-01-24 15:19 | Outpatient (CLI) | payer OTHER, SELFPAY | END 2023-01-24 15:20 | disposition home or self-care (01) | PROVIDERS: PCP Family Medicine; Visit Provider Family Medicine | DX: Z01.818 Encounter for other preprocedural examination (principal); E03.9 Hypothyroidism, unspecified; N39.0 Urinary tract infection, site not specified; F41.1 Generalized anxiety disorder | CPT/HCPCS: 80048; 81015; 84443; 85025; 87086; 87186 ==

== ENCOUNTER 2023-06-19 21:40 | Emergency (ER) | payer OTHER, SELFPAY ==
[2023-06-19 21:51] VITALS: BP 123/83; PULSE 93; RESP 18; TEMP 36.3; O2SAT 97; BMI 36.6
--- NOTE | 2023-06-19 22:37 | ED_ITS ---
HPI - General Adult General Chief complaint: Abdominal Pain Stated complaint: Abdominal Pain on L side Time Seen by Provider: 06/19/23 22:36 History of Present Illness HPI narrative: Pt c/o LLQ abdominal pain, vaginal bleeding, and worsening vaginal pain during intercourse that started two weeks ago. Pt states she has also had maroon- colored stools today. Pt states she had ablation done in 2020 and a cyst mass was found on left ovary. Pt has IUD placed. Boyfriend at bedside. Pt states he has been her partner for last year and a half. 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 This pain may occur later as well and is prone to just dealing with it which may include curling up into a position and taking a THC gummy. She mentions also during prone to constipation sounds like up to 2 weeks at a time. She apparently did have bowel movements more recently loose stools though does not sound like any bowel movement today; so would seem to be normal now. With this pain and bleeding is worried about a potential pelvic issue noting a pelvic mass thought to be associated with left ovary around 2000. Does show me the ultrasound imaging that had referenced some calcification in that area on a CT scan. This sounds to have been a nondescript cyst on ultrasound to 1.5 cm. These images I believe were done at [place]. Does have an IUD. Diagnosis of Mariel's and but 3 months ago had an resection of what she says was a salivary/submandibular gland. If she mentions that she did have a uterine ablation and that she should not be bleeding. Related Data Home Medications Medication Instructions Recorded Confirmed levonorgestrel 21 mcg/24 hours (8 1 device intrauterine ONCE 08/03/22 06/19/23 yrs) 52 mg intrauterine device (Mirena) Previous Rx's Medication Instructions Recorded phentermine 37.5 mg capsule 37.5 mg PO QDAY #30 caps 05/04/22 omeprazole 40 mg capsule,delayed 40 mg PO QDAY #30 caps 08/03/22 release bupropion HCl 300 mg 24 hr tablet, 300 mg PO QAM #30 tabs 01/10/23 extended release fluoxetine 20 mg capsule (Prozac) 20 mg PO QDAY #90 caps 01/24/23 levothyroxine 75 mcg tablet 75 mcg PO QDAY #90 tabs 01/24/23 lorazepam 1 mg tablet (Ativan) 1 mg PO QHS PRN sleep #30 tabs 01/24/23 Allergies Allergy/AdvReac Type Severity Reaction Status Date / Time No Known Drug Allergies Allergy Verified 06/19/23 22:00 Review of Systems Status of ROS: Reports: 6 or more systems reviewed and unremarkable except as noted in History and below [facility] Medical History AURE (generalized anxiety disorder) ?F41.1 - Generalized anxiety disorder (ICD-10) Major depressive disorder, recurrent episode ?F33.9 - Major depressive disorder, recurrent, unspecified (ICD-10) History of ETOH abuse ?F10.11 - Alcohol abuse, in remission (ICD-10) History of prescription drug abuse GERD (gastroesophageal reflux disease) ?K21.9 - Gastro-esophageal reflux disease without esophagitis (ICD-10) Hypothyroidism ?E03.9 - Hypothyroidism, unspecified (ICD-10) Sialoadenitis ?K11.20 - Sialoadenitis, unspecified (ICD-10) Insomnia ?G47.00 - Insomnia, unspecified (ICD-10) Obesity ?E66.9 - Obesity, unspecified (ICD-10) Surgical History Hx of tonsillectomy ?Z90.89 - Acquired absence of other organs (ICD-10) Hx of excision of mass ?Z98.890 - Other specified postprocedural states (ICD-10) Hx laparoscopic cholecystectomy ?Z90.49 - Acquired absence of other specified parts of digestive tract (ICD- 10) History of esophagogastroduodenoscopy ?Z98.890 - Other specified postprocedural states (ICD-10) Status post hysteroscopic ablation of endometrium ?Z98.890 - Other specified postprocedural states (ICD-10) History of ear surgery ?Z98.890 - Other specified postprocedural states (ICD-10) History of gastric bypass ?Z98.84 - Bariatric surgery status (ICD-10) Family History Father Graves disease Social History Narrative: , 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 Well-healing fresh scar at the right neck. Would appear to be in area of thyroid. Seems a little uncomfortable generally. Hands placed a lower abdomen at times. She is breathing easily. Lungs appear to be clear. Heart in an elevated rate but regular rhythm. There is no flank pain. Abdomen is soft with tenderness in the left lower quadrant. No peritoneal signs. No masses are appreciated. exam was not done anticipating ultrasound regardless. Const: Vital Signs, click to edit/add: Vital Signs - 24 hr 06/19/23 21:51 06/20/23 00:39 Temperature 97.3 F L 98.0 F Pulse Rate [Pulse Oximeter] 93 Respiratory Rate 18 Blood Pressure [Ri ght Upper Arm] 123/83 Pulse Oximetry 97 Oxygen Delivery Me thod Room Air Documenting provider has reviewed patient's vital signs: yes Course Vital Signs Vital signs: Initial Vital Signs Temperature 97.3 F L 06/19/23 21:51 Temperature Source Temporal Artery Scan 06/19/23 21:51 Pulse Rate 93 06/19/23 21:51 Respiratory Rate 18 06/19/23 21:51 Blood Pressure 123/83 06/19/23 21:51 Blood Pressure Mean 96 06/19/23 21:51 Blood Pressure Position Sitting 06/19/23 21:51 Pulse Oximetry 97 06/19/23 21:51 Oxygen Delivery Method Room Air 06/19/23 21:51 Vital Signs Temperature 97.3 F L 06/19/23 21:51 Pulse Rate 93 06/19/23 21:51 Respiratory Rate 18 06/19/23 21:51 Blood Pressure 123/83 06/19/23 21:51 Pulse Oximetry 97 06/19/23 21:51 Oxygen Delivery Method Room Air 06/19/23 21:51 Temperature 98.0 F 06/20/23 00:39 Pulse Rate 93 06/19/23 21:51 Respiratory Rate 18 06/19/23 21:51 Blood Pressure 123/83 06/19/23 21:51 Pulse Oximetry 97 06/19/23 21:51 Oxygen Delivery Method Room Air 06/19/23 21:51 Medical Decision Making MDM Narrative Medical decision making narrative: Think would be reasonable to check a hemoglobin. Ultrasound to verify placement of IUD and look for any other anomalies. She has concerns as to these pelvic cyst of sorts that had been seen prior. She had not followed up to confirm resolution. Ultrasound should help in this regard as well. Labs are reassuring. But does appear to have evidence of urinary tract infection. TSH slightly elevated. She does admit that is irregular with taking her thyroid supplementation. Certainly UTI/STI could be contributing to the pelvic pain she is experiencing. Unclear source of postcoital bleeding that she has been describing. Clinical any follow-up pelvic exam and speculum exam looking for other abnormalities. Ultrasound today was normal with IUD in correct intrauterine placement. No cystic structures were noted. See patient discharge plan Lab Data Lab results reviewed: Yes I reviewed the patient's lab results Labs: Lab Results 06/19/23 06/19/23 Range/Units 22:31 23:11 WBC 7.05 (4.50-11.00) K/uL RBC 4.45 (4.00-5.20) m/uL Hgb 12.7 (12.0-16.0) gm/dL Hct 39.6 (33.0-51.0) % MCV 89 (80-100) fL MCH 29 (26-34) pg MCHC 32 (32-36) gm/dL RDW Coeff of Shawn 12.5 (11.5-15.5) % Plt Count 367 (140-440) K/uL Neut % (Auto) 48.5 (42.0-72.0) % Lymph % (Auto) 40.3 (20-44) % [place] % (Auto) 8.5 (0.0-11.0) % Eos % (Auto) 1.4 (0.0-7.0) % Baso % (Auto) 0.7 (0.0-3.0) % Neut # (Auto) 3.42 (1.7-7.0) K/uL Lymph # (Auto) 2.84 (0.90-2.90) K/uL [place] # (Auto) 0.60 (0.00-0.90) K/UL Eos # (Auto) 0.10 (0.00-0.50) K/uL Baso # (Auto) 0.05 (0.00-0.30) K/uL Abs Immat Gran (auto) 0.04 (0.00-0.30) K/uL Imm/Tot Granulo (auto) 0.6 % ESR 8 (2-20) mm/hr Sodium 138 (135-149) mmol/L Potassium 3.8 (3.6-5.1) mmol/L Chloride 105 (96-114) mmol/L Carbon Dioxide 24 (20-32) mmol/L Anion Gap 9 (7-15) mEq/L BUN 13 (5-24) mg/dL Creatinine 0.7 (0.5-1.5) mg/dL Estimated Creat Clear 82.80 Estimated GFR 111 ml/min Glucose 92 (60-115) mg/dL Calcium 9.3 (8.4-10.6) mg/dL Total Bilirubin 0.4 (0.1-1.5) mg/dL Direct Bilirubin 0.0 (0.0-0.5) mg/dL AST 23 (12-35) U/L ALT 19 (4-35) U/L Alkaline Phosphatase 70 (40-150) U/L C-Reactive Protein < 0.5 L (0.5-1.0) mg/dL Total Protein 7.6 (6.0-8.3) g/dL Albumin 4.3 (3.3-5.0) g/dL TSH 5.940 H (0.270-4.20) uIU/mL Urine Color Yellow (Yellow) Urine Appearance Clear (Clear) Urine pH 6.0 (5.0-8.5) Ur Specific [place] 1.025 (1.000-1.030) Urine Protein Negative (Negative) Urine Glucose (UA) Negative (Negative) Urine Ketones Negative (Negative) Urine Blood Negative (Negative) Urine Nitrite Positive A (Negative) Urine Bilirubin Negative (Negative) Urine Urobilinogen 0.2 (0.2-1.0) Ur Leukocyte Esterase Trace A (Negative) Urine RBC 0-2 (0-2) Urine WBC 5-10 A (0-5) Ur Squamous Epith Cells Moderate A (None-Few) Urine Bacteria Moderate A (None) Urine HCG, Qual Negative (Negative) Discharge Plan Discharge Clinical Impression: Postcoital bleeding, Pelvic pain, Cystitis Patient Disposition: Home w/ Parent or Adult Condition: Improved Additional Instructions: Do focus on hydration. Probably could be drinking 2-3 L of water daily. Urine culture will be pending here. Cephalexin from [facility]. Your pelvic ultrasound is reassuring. It may be that you have to change some activity that is contributing to this bleeding, at least temporarily. I would also schedule follow-up with your primary care provider to evaluate this further if continues to be an issue. Prescriptions: No Action Mirena 20 mcg/24 hours (8 yrs) 52 mg intrauterine device 1 device intrauterine ONCE Rx Instructions: as a single dose omeprazole 40 mg capsule,delayed release(DR/EC) 40 mg PO QDAY Qty: 30 2RF Hold Instructions: Pt not taking lorazepam [Ativan] 1 mg tablet 1 mg PO QHS PRN (Reason: sleep) Qty: 30 0RF Hold Instructions: Pt not taking fluoxetine [Prozac] 20 mg capsule 20 mg PO QDAY Qty: 90 0RF Hold Instructions: Pt not taking levothyroxine 75 mcg tablet 75 mcg PO QDAY Qty: 90 3RF Hold Instructions: Pt not taking phentermine 37.5 mg capsule 37.5 mg PO QDAY Qty: 30 2RF Hold Instructions: Pt not taking Rx Instructions: must administer 30 minutes before or 1-2 hours after breakfast bupropion HCl 300 mg tablet extended release 24 hr 300 mg PO QAM Qty: 30 0RF Hold Instructions: Pt not taking Follow Up/Referrals: Dao Marrufo MD [Primary Care Provider] - Stand Alone Forms: [employer] Info Instructions
--- NOTE | 2023-06-19 22:46 | CRLHL7_ITS ---
For Patients: As a result of the Century Cures Act, medical imaging exams and procedure reports are released immediately into your electronic medical record. You may view this report before your referring provider. If you have questions, please contact your health care provider. INDICATION: Pelvic pain. Vaginal bleeding. TECHNIQUE: Ultrasound pelvis transvaginal. Real time sonographic images with Spectral and color Doppler imaging of the ovaries were obtained. COMPARISON: None available. FINDINGS: Uterus: Measures 7.8 x 3.8 x 5.3 cm. Normal echotexture of the myometrium. No masses. Endometrium: The endometrium is obscured by the echogenic IUD which appears appropriately positioned. No sign of endometrial mass or fluid. Right ovary: Measures 2.7 x 2.1 x 2.2 cm. No ovarian or adnexal masses. Normal arterial and venous blood flow. Left ovary: Measures 3.8 x 2.4 x 2.7 cm. No ovarian or adnexal masses. Normal arterial and venous blood flow. Cul-de-sac: No significant free fluid. IMPRESSION: 1. Normal appearance of the ovaries. 2. IUD appears appropriately positioned within the endometrial canal. Dictated by Karina Quiros MD @ 06/20/2023 1:05:37 AM (Electronically Signed)
[2023-06-19 23:06] LABS: Appearance Urine Clear (Clear); Color Urine Yellow (Yellow); Glucose Urine Negative (Negative)
[2023-06-19 23:07] LABS: Bilirubin Urine Negative (Negative); Blood Urine Negative (Negative); Ketones Urine Negative (Negative); Leukocyte Esterase Urine Trace (Negative); Nitrite Urine Positive (Negative); Protein Urine Negative (Negative); Specific Gravity Urine 1.025 (1.000-1.030); Urobilinogen Urine 0.2 (0.2-1.0)
[2023-06-19 23:18] LABS: Bacteria Urine Moderate; RBC Urine 0-2 (0-2); Squamous Epithelial Cell Urine Moderate (None-Few)
[2023-06-19 23:19] LABS: Ur HCG Qualitative* Negative (Negative)
[2023-06-19 23:30] LABS: Basophils Absolute Auto 0.05 K/uL (0.00-0.30); Basophils Percent Auto 0.7 % (0.0-3.0); Eosinophils Percent Auto 1.4 % (0.0-7.0); Hematocrit 39.6 % (33.0-51.0); Hemoglobin* 12.7 gm/dL (12.0-16.0); Immature Granulocytes Abs Auto 0.04 K/uL (0.00-0.30); Immature Granulocytes Pct Auto 0.6 %; Lymphocytes Absolute Auto 2.84 K/uL (0.90-2.90); Lymphocytes Percent Auto 40.3 % (20-44); Mean Corpuscular HGB Conc 32 gm/dL (32-36); Mean Corpuscular Hemoglobin 29 pg (26-34); Mean Corpuscular Volume 89 fL (80-100); Monocytes Percent Auto 8.5 % (0.0-11.0); Neutrophils Absolute Auto 3.42 K/uL (1.7-7.0); Neutrophils Percent Auto 48.5 % (42.0-72.0); Platelet Count* 367 K/uL (140-440); RDW Coefficient of Variation % 12.5 % (11.5-15.5); Red Blood Count 4.45 m/uL (4.00-5.20); White Blood Count* 7.05 K/uL (4.50-11.00)
[2023-06-19] MEDS: 0.9 % SODIUM CHLORIDE 1000 ml 1,000 ML IV (23:30)
[2023-06-19 23:38] LABS: Albumin* 4.3 g/dL (3.3-5.0); Chloride* 105 mmol/L (96-114); Sodium* 138 mmol/L (135-149)
[2023-06-19 23:39] LABS: Potassium* 3.8 mmol/L (3.6-5.1)
[2023-06-19 23:40] LABS: Creatinine* 0.7 mg/dL (0.5-1.5); Estimated Glomerular Filt Rate 111 ml/min
[2023-06-19 23:41] LABS: Alkaline Phosphatase* 70 U/L (40-150); Anion Gap 9 mEq/L (7-15); Aspartate Amino Transferase* 23 U/L (12-35); Bilirubin Total* 0.4 mg/dL (0.1-1.5); Carbon Dioxide* 24 mmol/L (20-32); Total Protein* 7.6 g/dL (6.0-8.3)
[2023-06-19 23:42] LABS: Alanine Aminotransferase* 19 U/L (4-35); Blood Urea Nitrogen* 13 mg/dL (5-24); Calcium* 9.3 mg/dL (8.4-10.6); Glucose* 92 mg/dL (60-115)
[2023-06-19 23:43] LABS: Slide Review Reflex No
[2023-06-19 23:45] LABS: C Reactive Protein* < 0.5 mg/dL (0.5-1.0)
[2023-06-20 00:09] LABS: Erythrocyte SedimentationRate* 8 mm/hr (2-20)
[2023-06-20 00:39] VITALS: TEMP 36.7
[2023-06-20] MEDS: KETOROLAC 30 MG/ML inj IVP (00:39)
[2023-06-20] MEDS: cefTRIAXone 1 GM in 0.9 % SODIUM CHLORIDE Mini-bag 100 ML IVPB (00:56)
--- NOTE | 2023-06-21 13:41 | ED.NURSE ---
Urine culture results shown to MD. Per Dr. Sen, no further treatment/action required. Pt to continue to stay on antibiotic.
== END 2023-06-20 01:45 | disposition home or self-care (01) ==
PROVIDERS: Emergency Provider Family Medicine; PCP Family Medicine
DX: N93.0 Postcoital and contact bleeding (principal); R10.2 Pelvic and perineal pain; N30.90 Cystitis, unspecified without hematuria
CPT/HCPCS: 36415; 76830; 80048; 80076; 81001; 81025; 84443; 85025; 85651; 86140; 87086; 87186; 93976; 96365; 96375; 99284; J0696; J1885; J7030

== ENCOUNTER 2023-08-25 09:04 | Day surgery (SDC) | payer OTHER, SELFPAY ==
[2023-08-25] VITALS (20 sets, daily range): BP systolic 91–134; BP diastolic 59–87; PULSE 62–107; RESP 14–18; TEMP 36.3–36.9; O2SAT 94–100; BMI 39.4
[2023-08-25] MEDS: LACTATED RINGERS 1000 ML 1,000 ML 100 ML IV ×2 (09:10→13:38)
[2023-08-25 09:33] LABS: Ur HCG Qualitative* Negative (Negative)
[2023-08-25] MEDS: SODIUM CHLORIDE 0.9 % (FLUSH) 10 ML SYRINGE IVF (09:36)
[2023-08-25 10:05] LABS: Hemoglobin* 12.3 gm/dL (12.0-16.0)
[2023-08-25 10:28] LABS: Creatinine* 0.7 mg/dL (0.5-1.5); Estimated Glomerular Filt Rate 111 ml/min
[2023-08-25] MEDS: CEFAZOLIN 2 GM INJ IVP (11:17)
[2023-08-25] MEDS: VASOPRESSIN 20 UNIT/ML INJ INJECTION (11:24)
[2023-08-25] MEDS: 0.9 % SODIUM CHLORIDE 50 ml INJECTION (11:24)
--- NOTE | 2023-08-25 13:33 | W.ANESCHARGE ---
Anesthesia Charges Start Date/Time Anesthesia Start Date: 08/25/23 Anesthesia Start Time: 10:47 Stop Date/Time Anesthesia Stop Date: 08/25/23 Anesthesia Stop Time: 15:05
[2023-08-25] MEDS: ESTROGENS, CONJUGATED VAGINAL 0.625 MG/G CREAM 1 APPLIC VAGINAL (14:48)
--- NOTE | 2023-08-25 15:10 | W.ANESCHARGE ---
Anesthesia Charges Start Date/Time Anesthesia Start Date: 08/25/23 Anesthesia Start Time: 10:47 Stop Date/Time Anesthesia Stop Date: 08/25/23 Anesthesia Stop Time: 15:05
--- NOTE | 2023-08-25 16:22 | PM.GYNPRHY ---
Procedure Type of Hysterectomy: Vaginal Pre-op/Post-op diagnoses: Pre-Op/Post-Op Diagnoses Operation Date: 08/25/23 10:35 <No data on this case meets the specified criteria> Procedure: Procedures Operation Date: 08/25/23 10:35 Actual Procedure Side Surgeon p Total Vaginal Hysterectomy, Bilateral Salpingectomy, Left ovarian cystectomy, Left Oophorectomy, Cystoscopy Darlene Echavarria MD Estimated blood loss (mL): 350 Anesthesia type: Spinal Complications: other (Increased bleeding from left ovary after cystectomy requiring left oopherectomy ) Fluids: crystalloid Fluid amount (mL): 1,700 Urine output (mL): 700 Weight of Uterus: 2.787 oz Specimen: uterus, right tube, left tube & ovary and other (Left ovarian cyst) Disposition: floor Narrative: Preoperative diagnosis: 43-year-old 3 para 3004 with menorrhagia (failed medical management as well as failed endometrial ablation with Mirena IUD placement) and CINII Postoperative diagnosis: Same. Likely endometriosis as well. Procedure: Total vaginal hysterectomy, bilateral salpingectomy, left ovarian cystectomy, left oophorectomy, and cystoscopy. Anesthesia: Spinal and local Surgeon: Darlene Echavarria MD printer assistant: Aria Calderon MD EBL: 350 mL IV Fluid: 1700 mL Urine output: 700 mL Drains: Munguia to gravity: Clear urine at the end of the procedure., Vaginal pack with Premarin in place. Specimen: Uterus with cervix, bilateral fallopian tubes, left ovary, left ovarian cyst to pathology Findings: On exam under anesthesia: Mons normal, clitoris normal, urethral meatus normal. Labia minora and majora normal in appearance bilaterally. Perineum and anus normal appearance. Vaginal introitus normal appearance. Vaginal pink and well rugated with scant white discharge. Cervix pink and without lesion - IUD strings protruding through the cervical os. Bimanual exam reveals uterus to be soft, nontender, mobile, anteverted, of normal size and texture (approximately 6 weeks). No palpable adnexal masses. Normal right fallopian tube. Normal right ovary with corpus luteum cyst. Left hydrosalpinx. Multi cystic left ovary. Suspected that 1 of the cysts with endometrioma. Diagnostic cystoscopy: The entirety of the bladder was noted to be without injury and no evidence of any sutures from the vaginal cuff causing injury. Normal urine flow was noted through both ureteral orifices. Procedure: Lois was taken to the operating room where general anesthesia was found be adequate. She is placed in the dorsal lithotomy position and an exam under anesthesia performed with the findings stated above. She was then prepped and draped in a sterile manner. A Munguia catheter was placed. A weighted speculum was placed in the posterior aspect of the vaginal introitus. The cervix was grasped with 2 single-toothed tenaculums and the cervix circumferentially injected dilute vasopressin, 20 units diluted in 50 mL of saline. A circumferential incision was made around the cervix with a scalpel. The anterior vaginal mucosa was grasped with an Allis clamp and the anterior cul-de-sac formed with Metzenbaum scissors. The peritoneum was grasped an with toothed forceps and the peritoneum entered sharply with Metzenbaum scissors. This opening was extended with blunt pressure and a [place] retractor placed through the opening. The posterior cul-de-sac was entered sharply with Rios scissors and a long weighted speculum was placed. Pedicles of the hysterectomy were formed using Yan clamps. All pedicles were Yan transfixed. The 1st pedicle was formed on the patient's left incorporating the uterosacral ligament. This was divided and Usha transfixed. These sutures were tagged with a small clamp. The right uterosacral ligament was grasped in the 1st right pedicle that pedicle was divided, Yan transfixed in the sutures held with a small Giovana clamp. Sequential pedicles were then formed using Usha clamps, all pedicles were divided sharply and Yan transfixed. At the level of the cornea at the utero ovarian ligament ligament were cross-clamped with a Usha clamp and divided. The cornual pedicles were doubly suture ligated: 1st with an 0 Vicryl free tie followed by an 0 Vicryl stick tie in a fore and aft manner. All pedicles were noted to be hemostatic. Attention was turned towards left ovarian cystectomy. This was removed with Allis clamps and Metzenbaum scissors. Increased bleeding noted after left ovarian cystectomy. Attempted to manage this increased bleeding with bipolar cautery with LigaSure Impact device, over-sewing the cystectomy area with 2-0 Vicryl continuous locking. However, despite this effort, persistent bleeding continued. Ovarian tissue was very friable and not healthy appearing. Decision was made to perform left oophorectomy along with left salpingectomy. This was performed with the Impact LigaSure device. After the left oophorectomy, hemostasis was noted. Attention was turned towards performing right salpingectomy. The Impact LigaSure device was used to coagulate and ligate the mesosalpinx underneath the fallopian tube in subsequent pedicle until the fallopian tube was cross ligated and removed. Hemostasis was assured. Increased bleeding was noted from the posterior vaginal cuff. Two 0 Vicryl continuous locking stitch was performed on the posterior vaginal cuff from the right uterosacral to the left uterosacral. After the running continuous locking stitch, hemostasis significantly improved. All pedicles were reassessed again and noted to be hemostatic. The weighted speculum removed. The vaginal cuff was re-approximated using 0 Vicryl sutures in a figure of X manner. The uterosacral pedicles were incorporated into each apex of the vaginal cuff. Excellent hemostasis was noted. A diagnostic cystoscopy was performed using normal saline as the insufflation medium. The entirety of the bladder was noted to be without injury and no evidence of any sutures from the vaginal cuff causing injury. Normal urine flow was noted through both ureteral orifices. Methylene blue IV was used to visualize the urine more easily. The Munguia catheter was then replaced. A vaginal pack with Premarin cream was placed in the vaginal canal to be removed tomorrow morning by the physician/or MD partner. Prior to the procedure the patient received: 2 g Ancef for antibiotic prophylaxis Patient received 1g of TXA. Plan for another dose of 2 g of Ancef when patient is on the floor due to contamination of the sterile field. Sponge, lap and instrument counts were correct x2 at the end of the procedure and the patient was taken to the recovery room in stable condition. Surgical debrief performed.
--- NOTE | 2023-08-25 16:27 | W.PM.H&PU ---
History & Physical Update History & Physical Update H&P Reviewed and patient assessed: No changes noted
[2023-08-25] MEDS: ACETAMINOPHEN 325 MG TABLET 650 MG PO (16:35)
[2023-08-25] MEDS: CEFAZOLIN 2 GM in 0.9 % SODIUM CHLORIDE Mini-bag 100 ML IVPB (18:01)
[2023-08-25] MEDS: diphenhydrAMINE 50 MG/ML inj 12.5 MG IVP (18:02)
--- NOTE | 2023-08-25 20:50 | PC.NURSE ---
Nursing Care Hours: [id number] Pt this shift arrived from PACU, charge nurse settled pt. When travel writer went in to check on pt, pt c/o pain 7/10 in abdominal area. Ice applied. SCD applied. IV patent. Scant bloody drainage in pad. Munguia patent. Denies nausea, but is itching, Benadryl given. Advance diet tolerated well. Tylenol given for pain. Assisted to right side for comfort. Assisted to edge of bed for dinner. VSS on room air, respiratory rate WNL. BP soft but pt asymptomatic.
[2023-08-25] MEDS: KETOROLAC 30 MG/ML inj IVP (22:38)
[2023-08-25] MEDS: diphenhydrAMINE 50 MG/ML inj 25 MG IVP (22:39)
[2023-08-26] VITALS (13 sets, daily range): BP systolic 85–138; BP diastolic 56–74; PULSE 51–97; RESP 14–20; TEMP 36.5–36.9; O2SAT 94–98
[2023-08-26 06:32] LABS: Hemoglobin* 11.2 gm/dL (12.0-16.0)
--- NOTE | 2023-08-26 07:02 | PC.NURSE ---
End of shift report [id number]: Pleasant and cooperative with cares. Pain to vaginal canal and left lower abdomen rated at 5/10, patient states that is tolerable. Munguia catheter patent, draining blue dyed, clear urine. Up and ambulating in hallways, tolerating well. Denies any nausea or vomiting. Mild itching reported, well managed with IV diphenhydramine. Pain well managed with IV ketorolac. Packing to vagina patent, small amount of serosanguineous drainage noted onto pad. Slept well.
[2023-08-26 07:12] LABS: Creatinine* 0.8 mg/dL (0.5-1.5); Est. Creatinine Clearance* 72.45; Estimated Glomerular Filt Rate 94 ml/min
--- NOTE | 2023-08-26 08:54 | P.DS_ITS ---
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 Indication for surgery: Menorrhagia and MAGGI 2. Intraoperative findings were notable for left ovarian cyst. Hospital Course: Hospital Course: Lois was admitted to the hospital on 08/25/2023 for a scheduled scheduled total vaginal hysterectomy with bilateral salpingectomy she additionally had a left ovarian cystectomy followed by left oophorectomy to control blood. Her surgery was uncomplicated. Her postoperative course was complicated by dehydration. When I saw her this morning at 9:15 a.m. she was stating that she was feeling dizzy when she stood up and was tachycardic. She was not anemic with a postoperative hemoglobin of 11.2. She is hypotensive when lying down but not hypotensive when standing up. She is not tachycardic when lying down. Urine output 1500mL/16 hours. Reported that she had only taken in ice chips overnight. I recommended that her nurse encourage oral hydration and was given 1 L of lactated Ringer's over 1 hour and I will check on her again in a few hours to see if she is able to go home. I also encouraged her to try to eat something this morning. She denies nausea/vomiting but states that she does not feel very hungry. She has not passed flatus. Labs: Preoperative hemoglobin 12.3, postoperative hemoglobin 11.2. Objective: General: Alert and oriented x3. Pleasant, woman in no acute distress. Vital signs: See EMR. Heart: Regular rate and rhythm without gallop, rub or murmur. Chest: Clear to auscultation bilaterally. Abdomen: Soft, nontender, nondistended with decreased bowel sounds throughout. No CVA or flank tenderness. Pelvic: Vaginal packing removed. Minimal vaginal bleeding, remainder of pelvic exam deferred. Extremities: No pain, edema, cyanosis or clubbing. Assessment: 43-year-old postoperative day 1 from a [facility]/bilateral salpingectomy/left ovarian cystectomy followed by left oophorectomy with dehydration in feeling dizzy. Plan: 1. 1 L lactated Ringer's IV fluid bolus over 1 hour 2. Activity restrictions reviewed with the patient. 3. Return to clinic to see for a postoperative visit in 2-3 weeks. 4. Encouraged the patient to orally hydrate. 5. Encouraged the patient to try to eat some regular food as she likely has low blood sugar which could help decrease dizzyness as well. At 12:40 p.m. the patient continues to have problems with dizziness when she stands up. Her urine output has decreased to 75 mL between 3:00 a.m. and 7:00 a.m. this morning and only 50 mL between 7:00 a.m. and 12:40pm so she is oliguric. I ordered a basic metabolic panel and got her to more cups of water to drink. She has only drink 2, 8 oz cups of water and 1 8 oz chocolate milk and had 1 L of LR. I am ordering another L of lactated Ringer's in addition to encouraging p.o. intake. Addendum: Basic metabolic panel on 08/26/2023 at 1:13 p.m.: Sodium 135, potassium 3.6, chloride 107, carbon dioxide 24, anion gap 4 (L), creatinine 0.8, GF are 94, glucose 107, calcium 8.5. These are all normal. Evidence acute renal failure resulting in oliguria so her oliguria is definitely secondary to dehydration. By 4:30 on 08/26/2023 the patient had 400mL UOP between 1-4:30Pm, O2 sat 96-97% standing at the bedside, pulse in the 80's when standing. No dizziness with walking. The echavarria catheter was discontinued. The nurse was asked to verify that the patient could urinate prior to discharge. Time Spent with Patient Time attestation: Total time spent providing and/or coordinating discharge services: NUMERICAL CONTROL MACHINE MACHINIST - Exam Physical Exam: Vital signs: Temp Pulse Resp BP Pulse Ox O2 Del Method 97.7 F 51 L 16 85/57 L 94 Room Air 08/26/23 03:00 08/26/23 03:00 08/26/23 05:00 08/26/23 03:00 08/26/23 03:00 08/26/23 03:00 NUMERICAL CONTROL MACHINE MACHINIST - DS: Data Data Completed and Pending Labs on day of discharge: Labs from last 24 hours 08/26/23 08/25/23 08/25/23 06:10 Unknown 09:56 Hgb 11.2 L 12.3 Creatinine 0.8 0.7 Estimated Creat Clear 72.45 82.80 Estimated GFR 94 111 Urine HCG, Qual Negative Blood Type O Positive Antibody Screen NEGATIVE Procedures Procedures: Procedures Operation Date: 08/25/23 10:35 Actual Procedure Side Surgeon p Total Vaginal Hysterectomy, Bilateral Salpingectomy, left ovarian cystectomy, left Oophorectomy, Cystoscopy Darlene Abdifatah Echavarria MD Complications: other (Increased bleeding from left ovary after cystectomy requiring left oopherectomy ) Discharge Plan Discharge Disposition: Home, Self-Care Discharging Surgeon: Riana Mota Follow-Up Appointment: 2 weeks post op Prescriptions: New acetaminophen 325 mg Tablet 650 mg PO Q4H PRN (Reason: minor pain) 30 Days Qty: 90 0RF bisacodyl 10 mg Suppository 10 mg WI Q8H PRN (Reason: Constipation) Qty: 12 0RF docusate sodium 100 mg Capsule 100 mg PO BID PRN (Reason: Constipation) Qty: 30 0RF simethicone 80 mg Tablet,Chewable 160 mg PO Q4H PRN (Reason: gas) Qty: 30 0RF oxycodone 5 mg Tablet 5 mg PO Q6H PRN (Reason: Moderate Pain) 14 Days Qty: 20 0RF Continued levothyroxine [Synthroid] 88 mcg tablet 88 mcg PO DAILY Activity Level: No strenuous activity Activity Detail: Pelvic rest x 6-8 weeks Discharge Diet: Regular Patient Instructions: Surgical Site Infections (DC) Additional Instructions: Total Vaginal Hysterectomy POSTOPERATIVE INSTRUCTIONS ACTIVITY No heavy lifting/pushing/pulling for 4-6 weeks. Do not lift anything more than about 10-15 lbs (such as laundry, groceries, children, pets), vacuum, push heavy doors or grocery carts, etc. You may climb stairs as tolerated. Do not put anything in the vagina for 6 weeks after surgery unless otherwise instructed by your doctor (including tampons, douching, sexual intercourse, etc). No driving for about 2 weeks after surgery, while you are taking narcotic pain medication, or until you feel that you are ready. Practice checking your blind spot and stepping hard on the brake. Avoid sitting or lying in bed for more than 2 hours at a time while you are awake to reduce your risk of blood clots. You may return to work when directed by your physician. Please contact your doctor if you need any return to work letters or medical leave paperwork to be completed. WOUND CARE You incision is inside the vagina and can not be seen. For wound care, nothing in the vaginal until cleared by your physician. Wash your hands frequently, especially before touching your incision, changing any dressings, after using the restroom, and before eating. PAIN MANAGEMENT Take your oral pain medication as needed. You should be taking 650 mg of Tylenol every 6 hours. You should then take the oxycodone as needed if you have breakthrough pain on top of the Tylenol. Some pain medications can cause constipation so you should take a stool softener (i.e. colace) while you are on these medications. You may also take milk of magnesia or Miralax for constipation. WHAT TO EXPECT AT HOME Recovery from surgery is generally 4-6 weeks, but sometimes longer for more strenuous activity. It is normal to be very tired during this time. It is normal to have some drainage or a small amount of vaginal bleeding after surgery which may last up to 6 weeks. You may go home with a echavarria catheter in your bladder. You will need to follow up for a nurse visit in 7-10 days for removal. You will most likely experience gas pain, abdominal swelling, or shoulder pain for 24-72 hours after surgery. A warm shower, heating pad, and/or walking may help. WHEN TO CALL YOUR DOCTOR : Fever (>100.4?F or 38.0?C) or chills. Incision problems such as redness, warmth, swelling, or foul smelling drainage. Severe nausea or persistent vomiting. Bright red vaginal bleeding (soaking >1 pad/hour) or foul smelling vaginal drainage. Severe pain not relieved with pain medication. Pain and swelling in your legs, especially if it is only on one side and not the other. Pain with urination, cloudy urine, or foul smelling urine. Or if you have any other problems or questions. CALL 911 OR GO TO THE EMERGENCY ROOM IF YOU HAVE: Any shortness of breath, difficulty breathing, or chest pain. Forms: Work/School Release Follow-up: Dao Marrufo MD [Primary Care Provider] - Darlene Echavarria MD [Staff Physician] - 09/12/23 11:00 am ([facility] for follow-up.) Discharge Orders: Discharge Order (Routine); Ordered 08/26/23 Ordered By: Riana Mota
[2023-08-26] MEDS: LACTATED RINGERS 1000 ML 1,000 ML IV ×2 (09:42→13:09)
[2023-08-26 13:45] LABS: Chloride* 107 mmol/L (96-114); Potassium* 3.6 mmol/L (3.6-5.1); Sodium* 135 mmol/L (135-149)
[2023-08-26 13:47] LABS: Creatinine* 0.8 mg/dL (0.5-1.5); Est. Creatinine Clearance* 72.45; Estimated Glomerular Filt Rate 94 ml/min
[2023-08-26 13:48] LABS: Anion Gap 4 mEq/L (7-15); Blood Urea Nitrogen* 16 mg/dL (5-24); Calcium* 8.5 mg/dL (8.4-10.6); Carbon Dioxide* 24 mmol/L (20-32); Glucose* 107 mg/dL (60-115)
[2023-08-26] MEDS: ACETAMINOPHEN 325 MG TABLET 650 MG PO (15:37)
--- NOTE | 2023-08-26 19:15 | PC.NURSE ---
Patient pleasant, alert and oriented. HR and O2 sats WNL at?rest this morning, however?HR increased?to 145 and O2 decreased 85% when standing. Also reported feeling SOB and lightheaded?at that time.?Vitals returned to stable after?sitting back down. MD updated and new orders given for IV bolus fluids. Oral fluids were also encouraged. Elevated HR and decreased O2 when standing resolved this afternoon, however patient continued to report having some dizziness when sitting on side of bed. Patient ambulated with MD in hallway at that time without any gait problems. Tolerated regular diet but had poor appetite. Patient requested PRN Tylenol for a headache this afternoon, but otherwise reported that pain was tolerable. Patient discharged at 1800. She ambulated out of Med/Surg accompanied by her significant other. Patient declined being wheeled to front door or being accompanied by staff.?
== END 2023-08-26 18:00 | disposition home or self-care (01) ==
LOC: OR 09:04 → MEDSURG 09:06
PROVIDERS: Obstetrics & Gynecology; PCP Family Medicine; Visit Provider Obstetrics & Gynecology
PROC: (CPT 58262; principal; 2023-08-25 10:15)
DX: N92.0 Excessive and frequent menstruation with regular cycle (principal); N87.1 Moderate cervical dysplasia; N83.202 Unspecified ovarian cyst, left side; N99.61 Intraoperative hemorrhage and hematoma of a genitourinary system organ or structure complicating a genitourinary system procedure; N80.9 Endometriosis, unspecified; E86.0 Dehydration; R42 Dizziness and giddiness; R34 Anuria and oliguria
CPT/HCPCS: 58262; 58925; 00944; 36415; 80048; 81025; 82565; 85018; 86850; 86900; 86901; 88305; 88309; A9270; C9290; J0665; J0690; J1100; J1200; J1885; J1940; J2250; J2274; J2405; J2704; J3010; J3490; J7120

== ENCOUNTER 2023-09-06 10:00 | Outpatient (CLI) | payer OTHER, SELFPAY | END 2023-09-06 10:01 | disposition home or self-care (01) | LOC: NFLDREF 09-09 18:47 | PROVIDERS: PCP Family Medicine; Referring Provider Family Medicine; Visit Provider Advanced Practice Midwife | DX: N76.0 Acute vaginitis (principal); B96.89 Other specified bacterial agents as the cause of diseases classified elsewhere | CPT/HCPCS: 87070 ==

== ENCOUNTER 2023-09-12 11:25 | Outpatient (CLI) | payer OTHER, SELFPAY | END 2023-09-12 11:26 | disposition home or self-care (01) | PROVIDERS: PCP Family Medicine; Visit Provider Obstetrics & Gynecology | DX: B99.9 Unspecified infectious disease (principal) | CPT/HCPCS: 87070; 87081; 87086; 87653 ==

== ENCOUNTER 2023-10-05 09:55 | Outpatient (CLI) | payer OTHER, SELFPAY | END 2023-10-05 09:56 | disposition home or self-care (01) | PROVIDERS: PCP Family Medicine; Visit Provider Obstetrics & Gynecology | DX: B99.9 Unspecified infectious disease (principal) | CPT/HCPCS: 87086; 87186 ==

== ENCOUNTER 2023-12-26 16:46 | Outpatient (CLI) | payer OTHER, SELFPAY | END 2023-12-26 16:47 | disposition home or self-care (01) | LOC: FBOREF 16:47 | PROVIDERS: PCP Family Medicine; Visit Provider Family Medicine | DX: E03.9 Hypothyroidism, unspecified (principal) | CPT/HCPCS: 84443 ==

== ENCOUNTER 2024-02-22 12:12 | Outpatient (CLI) | payer OTHER, SELFPAY ==
--- OUTSIDE RECORDS SUMMARY | 2024-02-22 12:14 | XMS_ITS | Clinical Summary ---
Author Name Unknown Organization [facility] Address [address] [place] [address] Care Team Providers Care Salesperson Burial Needs Name Role Phone Dao Marrufo MD Primary Care Provider Source Comments You are receiving this document as you are listed as the primary care provider,follow-up provider, or the patient has been referred to you for consultation.This is in compliance with the Medicare and[facility]cent[facility],which states Providers who transition their patient to another setting of careor provider of care or refers their patient to another provider of care shouldprovide summary care record for each transition of care or referral. [facility] Allergies No known active allergies Medications Medication Sig Dispensed Refills Start Date End Date Status pediatric multiple vitamin-iron (FRUITY CHEWS/IRON) chew tablet Chew and swallow 1 Tablet by mouth daily. 01/15/2014 Activ e cyanocobalamin [address] 1 Tablet (1,000 mcg) under tongue once a week. 01/22/2014 Active Cholecalciferol 3000 UNITS TABS Take 1 tablet by mouth daily (every 24 hours). Indications: VITAMIN D DEFICIENCY 08/06/2014 Active Calcium Citrate (CALCITRATE) 950 MG tablet Take 1 Tablet (950 mg) by mouth two times a day. 11/04/2014 Active Biotin 1 MG CAPS Take 1 Capsule (1 mg) by mouth daily. 01/14/2015 Active Thiamine HCl (VITAMIN B-1 OR) Take 150 mg by mouth daily (every 24 hours). 02/28/2015 Active citalopram (CELEXA) 40 MG tablet Take 1 Tablet (40 mg) by mouth daily. 02/25/2015 Active levonorgestrel (MIRENA) 20 MCG/24HR IUD 1 Each by Intrauterine route see administration instructions. 03/05/2015 Active buPROPion (WELLBUTRIN XL) 300 MG 24 hour release tablet Take 1 Tablet (300 mg) by mouth daily. 10/13/2022 Active omeprazole (PRILOSEC) 40 MG capsule Take 1 Capsule (40 mg) by mouth daily. 08/03/2022 Active LORazepam (ATIVAN) 1 MG tablet Take 1 Tablet (1 mg) by mouth daily as needed. 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 ; Laparoscopic vertical sleeve gastrectomy Morbid obesity 07/31/2013 Hypothyroid Joint pain, knee Overview: right Resolved Problems Problem Noted Date Diagnosed Date Resolved Date Bradycardia 02/25/2015 04/02/2015 Acute blood loss anemia 12/27/201302/14 Overview: Acute blood loss anemia, requiring transfusion Family History Medical History Relation Name Comments High Blood Pressure Father High Cholesterol Father Cancer Paternal Grandfather throat Relation Name Status Comments Father Alive Mother Alive Brother Alive Maternal Grandfather Maternal Grandmother Paternal Grandfather Alive Paternal Grandmother Alive Social History Tobacco Use Types Packs/Day Years Used Date Smoking Tobacco: Former Alcohol Use Standard Drinks/Week Comments Yes 0 (1 standard drink = 0.6 oz pur e alcohol) 1 drink once a month Sex and Gender Information Value Date Recorded Sex Assigned at Not on file Gender Identity Not on file Sexual Orientation Not on file Last Filed Vital Signs Vital Sign Reading Time Taken Comments Blood Pressure 114/80 02/09/2023 4:15 PM CDT Pulse 76 02/09/2023 4:15 PM CDT Temperature 36.4 ??C (97.5 ??F) 02/09/2023 3:45 PM CD T Respiratory Rate 12 02/09/2023 4:15 PM CDT Oxygen Saturation 96% 02/09/2023 4:15 PM CDT Inhaled Oxygen Concentration - - Weight 92.1 kg (203 lb) 01/05/2023 8:11 AM CDT Height 165.1 cm (5' 5) 01/05/2023 8:11 AM CDT Body Mass Index 33.78 01/05/2023 8:11 AM CDT Plan of Treatment Health Maintenance Due Date Last Done Comments Cervical Cancer Screening Due 1981 Hep C Screening (Preventive Services) 1981 HIV Screening (Preventive Services) 1997 Adult Preventive Visit 1999 HepB (1) 2000 COVID-19 Vaccine ( season) 2023 09/03/2021, 11/27/2020, 11/06/2020 Influenza (Season Ended) 2024 022, 07/16/2020, 08/27/2017, Additional history exists Zoster/Shingles (1 of 2) 2031 DTaP/Tdap/Td (3 - Tdap) 01/24/2033 01/24/2023, 08/25 HPV Vaccine Aged Out No longer eligi ble based on patient's age to complete this topic HepA Aged Out No longer eligi ble based on patient's age to complete this topic Hib Aged Out No longer eligi ble based on patient's age to complete this topic IPV (Polio) Aged Out No longer eligi ble based on patient's age to complete this topic MCV4 Aged Out No longer eligi ble based on patient's age to complete this topic Pneumococcal Aged Out No longer eligi ble based on patient's age to complete this topic Advance Directives * Full Code (Latest Code Status on File) Date Activated Date Inactivated Comments 02/09/2023 3:24 PM 02/09/2023 6:52 PM Care Teams Salesperson Burial Needs Relationship Specialty Start Date End Date Dao Marrufo MD [address] [place] [address] PCP - General 12/10/13
--- NOTE | 2024-02-22 12:15 | US_ITS ---
Patient: LARRY SEGOVIA Facility:?[facility] Patient ID:?[id number] Site Patient ID:?[id number]. Site :?[id number] Study:?US-Pelvis PELVIS TA & TV-02/22/2024 1:05:07 PM Ordering Physician:?TONYA SANTIZO M.D. Final Report: INDICATION: Right-sided pelvic and perineal pain. Status post hysterectomy 08/25/2023. COMPARISON: Ultrasound of the pelvis transvaginal from 06/19/2023. FINDINGS: Transvaginal and transabdominal ultrasound examination of the female pelvis was performed. Initial examination is performed with transabdominal technique and transvaginal technique is used for better visualization of the pelvic structures. The uterus is now seen to be absent, consistent with hysterectomy. The right ovary is identifiable and is normal in size, measuring 3.2 x 1.5 x 2.7 centimeters. It has a simple cyst measuring 2.0 x 1.1 x 1.9 centimeters, probably a dominant follicular cyst. There is normal color and pulse doppler flow in the right ovary. The left ovary can not be identified. There is no sign of free fluid in the pelvis. IMPRESSION: 1. Status post hysterectomy with no sign of any mass in the area of the resected uterus. 2. Right ovary contains a simple cyst measuring up to 2.0 centimeters in diameter, probably a dominant follicular cyst, requiring no further follow-up. 3. No sign of right ovarian torsion. 4. The left ovary can not be identified. Dictated by Reyes Perez MD @ 02/23/2024 10:48:24 AM Signed by:?Reyes Perez MD @02/23/2024 10:48:24 AM (Electronic Signature)
== END 2024-02-22 12:13 | disposition home or self-care (01) ==
LOC: US 12:12
PROVIDERS: PCP Family Medicine; Visit Provider Obstetrics & Gynecology
DX: R10.2 Pelvic and perineal pain (principal); N83.201 Unspecified ovarian cyst, right side
CPT/HCPCS: 76830; 76856; 93976

== ENCOUNTER 2024-03-06 06:49 | Day surgery (SDC) | payer OTHER, SELFPAY ==
[2024-03-06] VITALS (7 sets, daily range): BP systolic 121–127; BP diastolic 70–89; PULSE 51–88; RESP 16–20; TEMP 36.4–36.8; O2SAT 96–99; BMI 36.8
--- OUTSIDE RECORDS SUMMARY | 2024-03-06 06:51 | XMS_ITS | Clinical Summary ---
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
[2024-03-06] MEDS: LACTATED RINGERS 1000 ML 1,000 ML 100 ML IV ×2 (07:29→09:50)
[2024-03-06] MEDS: SODIUM CHLORIDE 0.9 % (FLUSH) 10 ML SYRINGE IVF (07:29)
[2024-03-06] MEDS: CEFAZOLIN 2 GM INJ IVP (08:10)
--- NOTE | 2024-03-06 08:47 | W.ANESCHARGE ---
Anesthesia Charges Start Date/Time Anesthesia Start Date: 03/06/24 Anesthesia Start Time: 07:53 Stop Date/Time Anesthesia Stop Date: 03/06/24 Anesthesia Stop Time: 09:14
--- NOTE | 2024-03-06 09:21 | W.ANESCHARGE ---
Anesthesia Charges Start Date/Time Anesthesia Start Date: 03/06/24 Anesthesia Start Time: 07:53 Stop Date/Time Anesthesia Stop Date: 03/06/24 Anesthesia Stop Time: 09:14
[2024-03-06] MEDS: MIDAZOLAM HCL 1 MG/ML inj 2 MG IVP (09:28)
[2024-03-06] MEDS: HALOPERIDOL 5 MG/ML INJ 2 MG IV (10:21)
--- NOTE | 2024-03-06 10:45 | SUR.PHASEII ---
pt began, at approx. 9:20 to pull at monitors, moving side to side, arms and legs swinging, crying, sitting up. Eyes closed, incoherent and unaware. Requiring assist of three nurses as well as SO to keep her in the bed. Pads applied to siderails. Versed 2mg tried with no effect. this continued for approx one hr. She did become more responsive but unable to open her eyes, still disoriented, trying to scoot out of the bed, insisting she needs to go home. denies pain, denies need to void. she remained safe throughout, pleasant, Saying no thankyou to all attempts to convince her to lay back. She was able to rest after Haldol was given. Monitoring continues
--- NOTE | 2024-03-06 11:04 | SUR.PHASEII ---
resting, arouses easily.appears comfortable
--- NOTE | 2024-03-06 12:21 | P.GYNPRC_ITS ---
Procedure Note Time Seen by Provider: 10:00 Date of procedure: 03/06/24 Will [facility] bill your pro fee for this procedure?: Yes Pre-op diagnosis: 1. Abnormal vaginal bleeding from vaginal granulation tissue Post-op diagnosis: 1. Abnormal vaginal bleeding from vaginal granulation tissue Procedure: 1. Exam under anesthesia 2. Vaginal granulation tissue removal 3. Vaginal cuff repair Anesthesia: MAC Complications: None Surgeon: Darlene Echavarria MD Estimated blood loss (mL): 15 IV fluids (mL): 800 Urine Output (mL): 75 Pathology: none sent Condition: stable Disposition: floor Findings: Pelvic exam: Mons normal, clitoris normal, urethral meatus normal. Labia minora and majora normal in appearance bilaterally. Perineum and anus normal appearance - no blood noted. Vaginal introitus normal appearance. Vagina pink and well rugated with scant white discharge. Cervix = surgically absent. The polypoid friable granulation tissue previously seen at the vaginal cuff is gone. 2 cm of granulation tissues across the vaginal cuff - friable to touch and very sup erficial. Bimanual exam reveals soft, nontender vaginal cuff. No palpable adnexal masses or tenderness. Rectal exam wnl normal limits after the conclusion of the case. No defect or retained sutures Procedure Description: INDICATIONS: 43yo G3 P 4004, with diagnosis abnormal vaginal bleeding due to granulation tissue status post total vaginal hysterectomy. DESCRIPTION OF PROCEDURE: The patient was taken to the operating room where MAC was administered. She was prepared and draped in normal sterile fashion in the dorsal lithotomy position in yellow fin/candy cane stirrups, taking care to avoid lower extremity hyperextension, hyperflexion or compression. A surgical time-out was performed with the entire operative staff per protocol. Perioperative antibiotics were given and pneumoboots were placed and activated. EUA revealed the above findings. Bladder was drained with straight cath. A speculum was placed in the patient's vagina to exposure the area of granulation tissue on the vaginal cuff - approximately 2 cm across. Small polypoid projections were removed easily with pickups. Electrocautery was used to coagulate the area for hemostasis. 2-vicyl was used to imbricate the area in a running locking manner. One [id number] using 3-0 Vicryl was placed in the center for hemostasis. Excellent hemostasis noted after the repair. All instruments were removed. Debrief performed per protocol and specimen reviewed. The patient tolerated the procedure well. Sponge, lap and needle counts were correct x 2. The patient was taken to the recovery room in stable condition. COMPLICATIONS: None PREOP ANTIBIOTIC: 2g of ancef
--- NOTE | 2024-03-06 12:21 | W.PM.H&PU ---
History & Physical Update History & Physical Update H&P Reviewed and patient assessed: No changes noted
== END 2024-03-06 12:20 | disposition home or self-care (01) ==
LOC: OR 06:50
PROVIDERS: PCP Family Medicine; Visit Provider Obstetrics & Gynecology
PROC: 0UQG0ZZ Repair Vagina, Open Approach (ICD-10-PCS; CPT 57135; principal; 2024-03-06 08:00)
DX: N93.8 Other specified abnormal uterine and vaginal bleeding (principal); A58 Granuloma inguinale; N89.8 Other specified noninflammatory disorders of vagina; Z90.710 Acquired absence of both cervix and uterus
CPT/HCPCS: 57135; 00942; 36415; 86850; 86900; 86901; J0690; J1100; J1630; J1885; J2250; J2405; J2704; J3010; J3490; J7120

== ENCOUNTER 2024-04-04 15:08 | Outpatient (CLI) | payer OTHER, SELFPAY ==
--- OUTSIDE RECORDS SUMMARY | 2024-04-04 15:11 | XMS_ITS | Clinical Summary ---
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 Overview: Other disorder [...] 01/05/2023 8:11 AM CDT Plan of Treatment Upcoming Encounters Date Type Department Care Team (Late st Contact Info) Description 04/05/2024 11:20 AM CDT Appointment Nataly Kincaid [id number] [facility] [address] [place] [phone] Catarino Alonso MD [address] [place] [address] 07/12/2024 3:00 PM CDT Appointment Nataly Kincaid [id number] [facility] [address] [place] [phone] Catarino Alonso MD [address] [place], [place] [id number] Health Maintenance Due Date Last Done Comments [...] 3:24 PM 02/09/2023 6:52 PM Care Teams Cereal Popper Relationship Specialty Start Date End Date Dao Marrufo MD [address] [place] [address] PCP - General 12/10/13
== END 2024-04-04 15:09 | disposition home or self-care (01) ==
PROVIDERS: PCP Family Medicine; Visit Provider Family Medicine
DX: M79.641 Pain in right hand (principal); M79.642 Pain in left hand; E03.9 Hypothyroidism, unspecified; R53.83 Other fatigue
CPT/HCPCS: 84443; 86200; 86431

== ENCOUNTER 2024-09-03 10:46 | Outpatient (CLI) | payer OTHER, SELFPAY ==
--- OUTSIDE RECORDS SUMMARY | 2024-09-03 10:56 | XMS_ITS | Clinical Summary ---
Author Organization [facility] Address [address] [place] [address] Care Team Providers Care Supervisor Customer Services Name Role Phone Dao Marrufo MD Primary Care Provider Source Comments You are receiving this document as you are listed as the primary care provider,follow-up provider, or the patient has been referred to you for consultation.This is in compliance with the Medicare and[facility]ive [facility],which states Providers who transition [...] by mouth daily as needed. 12/13/2022 Active FLUoxetine (PROZAC) 40 MG capsule Take 1 Capsule (40 mg) by mouth daily. 02/03/2024 Active levothyroxine (SYNTHROID) 50 MCG tablet TAKE ONE TABLET BY MOUTH EVERY DAY BEFORE BREAKFAST Active traZODone (DESYREL) 100 MG tablet Take 1 Tablet (100 mg) by mouth daily at bedtime. 02/03/2024 Active buPROPion (WELLBUTRIN XL) 150 MG 24 hour release tablet Take 1 Tablet (150 mg) by mouth daily. 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 ; Laparoscopic vertical sleeve gastrectomy Morbid obesity 07/31/2013 Hypothyroid Joint pain, knee Overview (05/21/2016): right Resolved Problems Problem Noted Date Diagnosed Date Resolved Date Bradycardia 02/25/2015 04/02/2015 Acute blood loss anemia 12/27/201302/14 Overview (06/08/2017): Acute blood loss anemia, requiring transfusion Family [...] 77 02/09/2023 4:15 PM CDT Temperature 36.4 C (97.5 F) 02/09/2023 3:45 PM CDT Respiratory Rate 12 02/09/2023 4:15 PM CDT [...] 1981 Hep C Screening (Preventive Services) 1981 Mammogram 1981 HIV Screening (Preventive Services) 1997 Adult Preventive Visit 1999 HepB (1) 2000 COVID-19 Vaccine ( season) 2024 09/03/2021, 11/27/2020, 11/06/2020 Influenza (#1) 2024 07/11/2023, 07/17, 07/16/2020, Additional history exists Zoster/Shingles (1 of 2) [...] on patient's age to complete this topic RSV Aged Out No longer eligi ble based [...] 3:24 PM 02/09/2023 6:52 PM Care Teams Supervisor Customer Services Relationship Specialty Start Date End Date Dao Marrufo MD [address] [place] [address] PCP - General 12/10/13
== END 2024-09-03 10:47 | disposition home or self-care (01) ==
PROVIDERS: PCP Family Medicine; Visit Provider Nurse Practitioner Family
DX: R53.83 Other fatigue (principal); E03.9 Hypothyroidism, unspecified; E66.9 Obesity, unspecified; R00.0 Tachycardia, unspecified; T14.8XXA Other injury of unspecified body region, initial encounter
CPT/HCPCS: 80053; 82306; 82728; 83540; 83550; 84443; 85025; 85651; 86140

== ENCOUNTER 2024-09-28 11:12 | Outpatient (CLI) | payer OTHER, SELFPAY ==
[2024-09-28 14:14] LABS: PCR FLU A Negative PCR FLU A (Negative); PCR FLU B Negative PCR FLU B (Negative); PCR RSV Negative PCR RSV (Negative); SARS PCR* POSITIVE SARS-CoV-2 (Negative)
== END 2024-09-28 11:13 | disposition home or self-care (01) ==
LOC: FBOREF 11:13
PROVIDERS: PCP Family Medicine; Visit Provider Family Medicine
DX: R50.9 Fever, unspecified (principal)
CPT/HCPCS: 87631

== ENCOUNTER 2025-01-18 14:59 | Outpatient (CLI) | payer OTHER, SELFPAY ==
--- NOTE | 2025-01-18 15:00 | CRLHL7_ITS ---
For Patients: As a result of the Century Cures Act, medical imaging exams and procedure reports are released immediately into your electronic medical record. You may view this report before your referring provider. If you have questions, please contact your health care provider. CLINICAL HISTORY: Pelvic pain TECHNIQUE: Real time, bellamy scale images were acquired of the pelvis using a transabdominal and transvaginal approach. Color Doppler analysis was performed of the ovaries. FINDINGS: Uterus is absent. The right ovary measures 4.4 x 1.9 x 3.1 centimeters. Normal blood flow to the right ovary. 2.1 centimeter cyst in the right ovary. Left ovary is absent. IMPRESSION: Right ovarian benign cyst. Dictated by Bridget Reed MD @ 01/20/2025 9:14:49 PM (Electronically Signed)
== END 2025-01-18 15:00 | disposition home or self-care (01) ==
LOC: US 14:59
PROVIDERS: PCP Family Medicine; Visit Provider Physician Assistant
DX: R10.2 Pelvic and perineal pain (principal); N83.201 Unspecified ovarian cyst, right side
CPT/HCPCS: 76830; 76856; 93976

== ENCOUNTER 2025-02-01 11:29 | Outpatient (CLI) | payer OTHER, SELFPAY ==
[2025-02-01 15:22] LABS: Bacterial Vaginosis* Negative (Negative); Candida glab/krus NOT DETECTED (No Detected); Candida species NOT DETECTED (No Detected); Trichomonas vaginalis NOT DETECTED (No Detected)
[2025-02-01 15:52] LABS: Chlamydia DNA Amplified* NOT DETECTED (No Detected); GC DNA Amplified* NOT DETECTED (No Detected)
[2025-02-03 00:46] LABS: HPV Source Vaginal; HPV, High Risk by TMA Not Detected
== END 2025-02-01 11:30 | disposition home or self-care (01) ==
PROVIDERS: PCP Family Medicine; Visit Provider Obstetrics & Gynecology
DX: N93.9 Abnormal uterine and vaginal bleeding, unspecified (principal); R53.83 Other fatigue; A59.9 Trichomoniasis, unspecified; Z12.4 Encounter for screening for malignant neoplasm of cervix; Z11.3 Encounter for screening for infections with a predominantly sexual mode of transmission
CPT/HCPCS: 81513; 86592; 86703; 86803; 87340; 87481; 87491; 87591; 87624; 87625; 87661; 88141; 88142

== ENCOUNTER 2025-05-10 10:59 | Outpatient (CLI) | payer OTHER, SELFPAY ==
--- NOTE | 2025-05-10 11:15 | CRLHL7_ITS ---
For Patients: As a result of the Century Cures Act, medical imaging exams and procedure reports are released immediately into your electronic medical record. You may view this report before your referring provider. If you have questions, please contact your health care provider. CLINICAL HISTORY: Pelvic pain TECHNIQUE: Real time, bellamy scale images were acquired of the pelvis using a transabdominal and transvaginal approach. Color Doppler analysis was performed of the ovaries. FINDINGS: Hysterectomy. Right ovary measures 6.6 x 4 x 5.4 centimeters complex right ovarian cyst measuring 5.4 x 3.9 x 5.2 centimeters blood flow to the right ovary Left ovary is absent. IMPRESSION: Complex right ovarian cyst favor possible hemorrhagic cyst measuring 5.4 x 3.9 x 5.2 centimeters with blood flow present. Follow up ultrasound in 8-12 weeks is recommended. Dictated by Bridget Reed MD @ 05/15/2025 7:03:31 AM (Electronically Signed)
== END 2025-05-10 11:00 | disposition home or self-care (01) ==
LOC: US 11:00
PROVIDERS: PCP Family Medicine; Visit Provider Obstetrics & Gynecology
DX: R10.2 Pelvic and perineal pain (principal); N83.201 Unspecified ovarian cyst, right side
CPT/HCPCS: 76830; 93976

== ENCOUNTER 2025-05-13 15:28 | Outpatient (CLI) | payer OTHER, SELFPAY | END 2025-05-13 15:29 | disposition home or self-care (01) | PROVIDERS: PCP Family Medicine; Visit Provider Family Medicine | DX: E03.9 Hypothyroidism, unspecified (principal); R53.83 Other fatigue; Z79.899 Other long term (current) drug therapy | CPT/HCPCS: 80048; 82306; 83036; 84443; 85025 ==

== ENCOUNTER 2025-09-13 10:03 | Outpatient (CLI) | payer OTHER, SELFPAY ==
--- NOTE | 2025-09-13 10:15 | CRLHL7_ITS ---
For Patients: As a result of the Century Cures Act, medical imaging exams and procedure reports are released immediately into your electronic medical record. You may view this report before your referring provider. If you have questions, please contact your health care provider. INDICATION: unspecified ovarian cyst COMPARISON: 05/10/2025 TECHNIQUE: 2D bellamy-scale and color Doppler images were acquired of the pelvis using a transvaginal approach. FINDINGS: The uterus and left ovary are absent. The right ovary measures 4.6 x 3.2 x 3.2 cm. The right ovary demonstrates normal arterial and venous blood flow on color Doppler analysis. There are no suspicious fluid collections within the cul-de-sac. Simple right ovarian cyst is present which measures 2.8 x 2.3 x 2.9 cm. IMPRESSION: Simple right ovarian cyst measures 2.9 cm. Resolution of the previously noted internal blood products. Dictated by Dao Rasheed MD @ 09/16/2025 5:44:45 AM (Electronically Signed)
== END 2025-09-13 10:04 | disposition home or self-care (01) ==
LOC: US 10:04
PROVIDERS: PCP Family Medicine; Visit Provider Obstetrics & Gynecology
DX: N83.209 Unspecified ovarian cyst, unspecified side (principal); N83.291 Other ovarian cyst, right side
CPT/HCPCS: 76830

== ENCOUNTER 2025-09-13 11:30 | Outpatient (CLI) | payer OTHER, SELFPAY ==
--- NOTE | 2025-09-13 11:30 | CRLHL7_ITS ---
For Patients: As a result of the Century Cures Act, medical imaging exams and procedure reports are released immediately into your electronic medical record. You may view this report before your referring provider. If you have questions, please contact your health care provider. INDICATION: BILATERAL SCREENING MAMMOGRAM, ASYMPTOMATIC 45 Y/O FEMALE COMPARISON: BASELINE TECHNIQUE: Digital mammogram in CC and MLO projections including computer-aided detection (CAD) and tomosynthesis. BREAST COMPOSITION: There are scattered areas of fibroglandular density. FINDINGS: No suspicious findings. ASSESSMENT: BI-RADS 1 Negative RECOMMENDATION: Annual screening mammogram. A lay language report of this examination will be provided to the patient. Dictated by: Dao Rasheed MD @ 09/18/2025 10:08:03 (Electronically Signed)
== END 2025-09-13 11:31 | disposition home or self-care (01) ==
LOC: MAMMO 09-19 14:39
PROVIDERS: PCP Family Medicine; Visit Provider Family Medicine
DX: Z12.31 Encounter for screening mammogram for malignant neoplasm of breast (principal)
CPT/HCPCS: 77063; 77067